=== PATIENT | female | born 1945 | race Caucasian/White ===

== ENCOUNTER 2020-02-19 16:17 | Outpatient (REF) | payer MEDICARE, SELFPAY ==
[2020-02-19 18:56] LABS: T4 Thyroxine 7.2 ug/dL (4.5-12.0)
[2020-02-19 19:00] LABS: Thyroid Stimulating Hormone 2.17 mIU/mL (0.32-4.0)
== END 2020-02-19 16:18 | disposition home or self-care (01) ==
LOC: HO.LAB 16:17
PROVIDERS: PCP Internal Medicine; Visit Provider Internal Medicine Gastroenterology
DX: R63.4 Abnormal weight loss (principal)
CPT/HCPCS: 84436; 84443

== ENCOUNTER 2020-08-19 11:48 | Emergency (ER) | payer MEDICARE, SELFPAY ==
--- NOTE | ~2020-08-19 | CT_ITS ---
EXAMINATION: CT CHEST, ABDOMEN AND PELVIS WITH CONTRAST CLINICAL INFORMATION: Right lower quadrant pain and weight loss COMPARISON: No pertinent prior studies are available for comparison. TECHNIQUE: Multidetector volumetric imaging was performed from the thoracic inlet through the pubic symphysis following administration of 85 mL of Omnipaque 350 intravenous contrast. Sagittal and coronal reformatted images were obtained on the technologist workstation. DLP: 172.99 mGy-cm. FINDINGS: CHEST: Lungs: There is diffuse centrilobular emphysema seen bilaterally with hyperinflation. There is bilateral apical pleural-parenchymal scarring. Central airways are patent. There is some bronchial wall thickening present. There is a region of focal bronchiectasis within the right upper lobe posterior medial aspect. There are some sub-4 mm densities present. There are some intrafissural lymph nodes present. There are a few scattered calcified granulomas present. There is a 5 mm noncalcified subpleural density seen in a region of scarring involving the right major fissure. There is also a 2 mm in noncalcified density adjacent to this area. Mediastinum: Heart normal size. No pericardial effusion. Coronary artery calcification is seen. There is a 1 cm right hilar lymph node. No thoracic aortic aneurysm or dissection is seen. Aortic arch calcified plaque is present with question hemodynamically significant narrowing at the origin of the left subclavian artery. Pericardium/Pleura: There is no significant pleural effusion. There is a small amount of pericardial fluid present. Chest Wall/Axilla: Unremarkable. ABDOMEN/PELVIS: Liver, Gallbladder, Biliary Tree: There are a few small sub-5 mm low-density lesions seen within the liver likely representing small cysts. No suspicious focal mass or intrahepatic bile duct dilatation is seen. The gallbladder is unremarkable with no evidence of radiopaque gallstones, gallbladder wall thickening, or pericholecystic inflammatory changes. Pancreas: Unremarkable. Spleen: Unremarkable. Adrenal Glands: Unremarkable. Kidneys and Ureters: The kidneys are normal in size, shape, and attenuation. No hydronephrosis or hydroureter or calculi seen. No perinephric stranding. There are bilateral renal cysts present right greater than left. Bladder: Distended and unremarkable. Gastrointestinal Tract: No dilated loops of large or small bowel are evident. No free air or free fluid is seen. There is sigmoid diverticular disease without evidence of acute diverticulitis. There appears to be previous surgery with appendix not being identified. Abdominal Wall: No hernia is demonstrated. Lymph Nodes: No lymphadenopathy appreciated. Vascular: There is a large amount of calcified plaque seen in the aortoiliac system. The visceral vessels are patent with calcified plaque at their ostia. Portal vein is patent. No abdominal aortic aneurysm. Pelvic Viscera: No suspicious pelvic mass identified. Osseous Structures: There is osteopenia visualized bones. No suspicious destructive bony lesion identified. There is scoliosis of the thoracic spine convex left. There is multilevel degenerative disc disease seen with loss of disc spaces L2-S1. CT/CT abdomen pelvis w con IMPRESSION: Diffuse centrilobular emphysema. 1 cm right hilar lymph node. 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
--- NOTE | ~2020-08-19 | CT_ITS ---
EXAMINATION: CT HEAD WITHOUT CONTRAST CLINICAL INFORMATION: Dizziness COMPARISON: None TECHNIQUE: Contiguous axial imaging was performed from the skull base to vertex without intravenous administration of contrast. This CT examination was performed using dose optimization techniques as appropriate, variously including the following: *Automated exposure control *Adjustment of mA and/or kV according to patient size (this includes techniques or standardized protocols for targeted exams where dose is matched to indication/reason for exam; i.e. extremities or head) *Use of iterative reconstruction technique DLP: 596 mGy-cm FINDINGS: There is no evidence of acute intracranial hemorrhage or territorial infarction. No abnormal mass effect or midline shift is seen. Sherman to white matter differentiation is well preserved. No extra-axial fluid collections are identified. The ventricles are normal in size. There is no abnormal attenuation within the brain parenchyma. The osseous structures and soft tissues are normal. The mastoid air cells and visualized portions of the paranasal sinuses are well aerated. CT/CT head/brain wo con IMPRESSION: No acute intracranial process seen
--- NOTE | 2020-08-19 12:02 | ECG_ITS ---
Test Reason : ABDOMINAL PAIN Blood Pressure : / mmHG Vent. Rate : 092 BPM Atrial Rate : 092 BPM P-R Int : 118 ms QRS Dur : 066 ms QT Int : 356 ms P-R-T Axes : 084 071 078 degrees QTc Int : 440 ms Normal sinus rhythm Normal ECG No previous ECGs available Referred By: Karolina Luis Electronically Signed By:ARIAS JIMENEZ
[2020-08-19 12:13] VITALS: BP 160/71; PULSE 90; RESP 18; TEMP 36.9; O2SAT 96; BMI 17.6
[2020-08-19 12:37] LABS: MANUAL DIFF FLAG NO
[2020-08-19 12:43] LABS: Basophils Percent Auto 0.5 % (0-2); Eosinophils Percent Auto 0.1 % (0-4); Hemoglobin 14.7 g/dl (12.0-16.0); Imm Gran Abs Auto 0.01 X10*3/uL (0.00-0.03); Imm Gran Pct Auto 0.1 % (0.0-0.4); Lymphocytes Absolute Auto 0.9 X10*3/uL (1.2-4.9); Lymphocytes Percent Auto 12.1 % (20-40); Mean Corpuscular HGB Conc 33.4 g/dl (31.0-35.0); Mean Corpuscular Hemoglobin 29.5 pg (27.0-33.0); Mean Corpuscular Volume 88.4 fL (80-98); Monocytes Absolute Auto 0.4 X10*3/uL (0.1-1.2); Monocytes Percent Auto 5.4 % (2-11); Neutrophils Absolute Auto 6.3 X10*3/uL (2.0-8.3); Neutrophils Percent Auto 81.8 % (45-73); Platelet Count 259 X10*3/uL (160-400); Red Blood Count 4.98 X10*6/uL (4.20-5.50); Red Cell Distribution Width 12.6 % (11.0-16.0); White Blood Count 7.7 X10*3/uL (4.8-10.8)
[2020-08-19 12:45] LABS: Prothrombin Time 11.3 SEC (10.8-13.0)
--- NOTE | 2020-08-19 12:45 | ED.ABDPAIN ---
HPI - Abdominal Pain General Chief Complaint: Abdominal Pain Stated Complaint: abd pain, nausea Time Seen by Provider: 08/19/20 11:52 Source: patient and family (Daughter at bedside) Mode of arrival: EMS Limitations: no limitations History of Present Illness HPI narrative: 74-year-old female with a past medical history of COPD, hyperlipidemia, anxiety disorder, IBS and diverticulosis being followed by [employer] operator Dr. Senior presenting to the ED with complaints of intermittent right upper quadrant/right lower quadrant radiating to her suprapubic abdominal area since Nov 2019. With associated nausea and dark brown stools. She reports in November 2019 she was seen at [facility] and had a CT scan of her abdomen and pelvis along with an ultrasound which per patient was negative for any acute processes. She reports she had a colonoscopy approximately 2 years ago. She reports over the past few days she has had increased generalized weakness. She reports she has also been having a humming sensation in her head and in her ears. Denies any dizziness, headaches, changes in vision, neck pain/stiffness, sore throat, cough, dyspnea on exertion, orthopnea, chest pain, shortness of breath, vomiting, vomiting any blood, radiation of the abdominal to the back, hematuria, dysuria, black or bloody stools or any other symptoms complaints or concerns at this time. MD elicited complaint: abdominal pain Related Data Home Medications Medication Instructions Recorded Confirmed albuterol sulfate 1 vial INHALATION Q6H PRN 08/19/20 08/19/20 atorvastatin 1 tab PO DAILY 08/19/20 08/19/20 budesonide-formoterol [Symbicort] 2 puff INHALATION BID 08/19/20 08/19/20 dicyclomine 1 cap PO DAILY 08/19/20 08/19/20 duloxetine 1 cap PO DAILY 08/19/20 08/19/20 omeprazole 1 cap PO DAILY 08/19/20 08/19/20 prednisone 1 tab PO DAILY 08/19/20 08/19/20 psyllium [Metamucil] 1 packet PO DAILY 08/19/20 08/19/20 Allergies Allergy/AdvReac Type Severity Reaction Status Date / Time No Known Allergies Allergy Unverified 01/01/20 15:23 Review of Systems Review of Systems Constitutional : No Weight loss, No Fever, No Chills, No Night Sweats, No Fatigue, NoMalaise ENT/Mouth: No ear pain, No sore throat, No Difficulty swallowing Cardiovascular : No Chest Pain, No SOB, No Dyspnea on Exertion, No Orthopnea, NoEdema, No Palpitations Respiratory : No Cough, No Sputum, No Wheezing, No Dyspnea Gastrointestinal : Positive nausea and abdominal pain, No Vomiting, No Diarrhea, No blood streaked emesis, No coffee-ground emesis, No gross hematemesis, No blood streak stool, No gross hematochezia, No Melena Genitourinary : No irregular bleeding, No Dysuria, No Urinary Frequency, No Hematuria,No Urinary Incontinence, No Urgency, No Flank Pain Musculoskeletal : No joint pain, No Myalgias, No Joint Swelling Skin : No Skin Lesions, No rash Neuro : No Weakness, No Numbness, No Paresthesias, No Loss of Consciousness, NoDizziness, No Headache Psych : No Social Issues, Heme/Lymph: No Bruising, No Bleeding,No Lymphadenopathy Endocrine : No Polyuria, No Polydipsia, No Temperature Intolerance Yes all other systems are reviewed and are negative Physical Exam Vital Signs: Vital Signs: Last Vital Signs Temp 98.5 F 08/19/20 12:13 Pulse 90 08/19/20 12:13 Resp 18 08/19/20 12:13 BP 160/71 H 08/19/20 12:13 Pulse Ox 96 08/19/20 12:13 Body Mass Index 17.6 vital signs have been reviewed as normal and appeared to be correct. Blood pressure hypertensive at 160/71. Heart rate normal. Respiration rate normal. Temperature normal. Oxygen saturation normal. Appearance: Alert. Oriented X3. No acute distress. Head: Normal external exam. Normocephalic. Atraumatic. Able to rotate head bilaterally. Eyes: PERRLA. EOMI. No nystagmus noted. Conjunctiva and sclera normal. Eyelids normal. Corneal reflex normal. ENT: EAC normal. TM's Normal. Hearing normal. Pharynx normal. Uvula midline. tongue midline. Moist mucous membranes. No trismus noted. No drooling noted. No muffled voice noted. No nystagmus noted. Neck: Normal inspection. Neck supple. FROM. No adenopathy. Trachea midline. Thyroid Normal. No meningeal signs. No neck mass noted. CVS: Normal heart rate and rhythm. Heart sound normal. No murmurs noted. Pulses normal throughout. Respiratory: No respiratory distress. Painless inspiration. Breath sounds normal. No wheezes/rales/rhonchi noted. Chest nontender. No accessory muscle usage noted or decreased air movement noted. Abdomen: Soft and moderate tenderness to palpation to right upper quadrant/right lower quadrant and left lower quadrant/suprapubic area with guarding. Nondistended. No rigidity. Bowel sounds normal in all 4 quadrants. No distention noted. No organomegaly noted. No visible injury noted. No rebound tenderness. Negative Rovsing sign. Negative obturator's sign. Negative psoas sign. Negative Cotton sign. Back: No CVA tenderness. Full range of motion noted. Skin: Skin warm and dry. Normal skin color. Normal skin turgor. No rashes/lesions/lacerations noted. Extremities: No lower extremity edema. Extremities exhibit normal range of motion. Extremities nontender. Able to shrug shoulders bilaterally and keep up against resistance. Neuro: Oriented X 3. No motor deficit. No sensory deficit. Reflexes normal. Moving all extremities. No focal motor deficits. Cranial nerves II-XI intact bilaterally. Facial strength normal. Normal cognition. Speech normal. Gait normal. Strength 5/5 throughout. No pronator drift. No tremor noted. No fasciculations noted. No rigidity noted. Muscle tone normal throughout. No asterixis noted. [id number] test normal. Heel to sherman test normal. Tandem gait normal. Does not sway with eyes open. Romberg test negative. Rapid alternating movement upper extremity normal. Rapid alternating movement lower extremity normal. Hand drop from overhead Misses face. NIHSS score 0. Course Course Course Narrative: 16pm - labs obtained and all within normal limits. COVID swab negative. CT scan of brain within normal limits no acute processes are noted. CT scan of chest revealed emphysema and a 5 mm noncalcified subpleural density seen in the region of the scarring involving the right major fissure and a 2 mm noncalcified density adjacent to this area. Patient also has There is a 1 cm right hilar lymph node. Otherwise no other acute processes noted. I gave the patient and her family member a copy of all her results including blood work and the imaging and instructed to follow-up with Dr. Senior in her PCP and to return if any new or worsening symptoms. Patient and family member at bedside understand agree with this plan. 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 Senior presenting to the ED with complaints of intermittent right upper quadrant/right lower quadrant/suprapubic abdominal pain with associated nausea over the past few months worse this week with associated generalized weakness and dark brown stools. Reports she has also heard a humming sensation her head/ears. Imaging at [facility] in November 2019 negative per patient. Colonoscopy 2 years ago negative. - on exam patient is alert oriented x3. Not in any acute distress. Vital signs are stable patient mildly hypertensive otherwise all other vitals are within normal limits. No focal neuro deficits are noted. NIHSS score 0. Lungs clear to auscultation. CV RRR. Abdomen is soft although patient has moderate tenderness almost diffusely mainly in the right upper/right lower/suprapubic and left lower quadrant with guarding. No CVA tenderness is noted. - Plan: Labs, CXR, EKG, blood cultures, lactic acid, CT scan of brain, CT of chest and CT scan of abd/pelvis without IV contrast. Provide 4 mg of Zofran and 650 mg of p.o. liquid Tylenol as patient is refusing any additional pain medications and re-evaluate. Medical Records Attestation: I reviewed the patient's medical records. Lab Data Attestation: I reviewed the patient's lab results. Result diagrams: 08/19/20 12:30 08/19/20 12:30 Labs: Lab Results 08/19/20 08/19/20 08/19/20 Range/Units 12:30 12:30 12:30 WBC 7.7 (4.8-10.8) X10*3/uL RBC 4.98 (4.20-5.50) X10*6/uL Hgb 14.7 (12.0-16.0) g/dl Hct 44.0 (37-47) % MCV 88.4 (80-98) fL MCH 29.5 (27.0-33.0) pg MCHC 33.4 (31.0-35.0) g/dl RDW 12.6 (11.0-16.0) % Plt Count 259 (160-400) X10*3/uL MPV 9.0 L (9.4-12.3) fL Immature Gran % (Auto) 0.1 (0.0-0.4) % Neut % (Auto) 81.8 H (45-73) % Lymph % (Auto) 12.1 L (20-40) % [place] % (Auto) 5.4 (2-11) % Eos % (Auto) 0.1 (0-4) % Baso % (Auto) 0.5 (0-2) % Lymph # (Auto) 0.9 L (1.2-4.9) X10*3/uL [place] # (Auto) 0.4 (0.1-1.2) X10*3/uL Eos # (Auto) 0.0 (0.0-0.4) X10*3/uL Baso # (Auto) 0.0 (0.0-0.2) X10*3/uL Abs Immat Gran (auto) 0.01 (0.00-0.03) X10*3/uL Absolute Neuts (auto) 6.3 (2.0-8.3) X10*3/uL Absolute Nucleated RBC 0.000 (0.0-0.012) X10*3/uL Nucleated RBC % (auto) 0.0 (0.0-0.2) /100WBC PT (10.8-13.0) SEC INR (0.9-1.1) APTT (24.1-38.0) SEC Sodium 135 (135-145) mmol/L Potassium 4.7 (3.3-5.1) mmol/L Chloride 97 (96-108) mmol/L Carbon Dioxide 27 (22-29) mmol/L Anion Gap 16 (12-20) BUN 11 (9-16) mg/dL Creatinine 0.76 (0.5-1.4) mg/dL Estim Creat Clear Calc 46.4 Estimated GFR > 60 Random Glucose 108 (60-115) mg/dL Lactic Acid (0.5-2.0) mmol/L Calcium 9.9 (8.4-10.2) mg/dL Magnesium 1.9 (1.6-2.6) mg/dL Total Bilirubin 0.7 (0.0-1.0) mg/dL Direct Bilirubin 0.2 (0.0-0.5) mg/dL AST 20 (5-31) U/L ALT 13 (0-31) U/L Alkaline Phosphatase 65 (39-117) U/L Troponin I High Sens (<3.5-17.0) ng/L Total Protein 6.8 (6.5-8.0) g/dL Albumin 4.3 (3.5-5.0) g/dL Lipase 11 (8-78) U/L COVID-19 ([facility]) Negative (Negative) COVID-19 Clin Com See Note 08/19/20 08/19/20 08/19/20 Range/Units 12:30 12:30 12:30 WBC (4.8-10.8) X10*3/uL RBC (4.20-5.50) X10*6/uL Hgb (12.0-16.0) g/dl Hct (37-47) % MCV (80-98) fL MCH (27.0-33.0) pg MCHC (31.0-35.0) g/dl RDW (11.0-16.0) % Plt Count (160-400) X10*3/uL MPV (9.4-12.3) fL Immature Gran % (Auto) (0.0-0.4) % Neut % (Auto) (45-73) % Lymph % (Auto) (20-40) % [place] % (Auto) (2-11) % Eos % (Auto) (0-4) % Baso % (Auto) (0-2) % Lymph # (Auto) (1.2-4.9) X10*3/uL [place] # (Auto) (0.1-1.2) X10*3/uL Eos # (Auto) (0.0-0.4) X10*3/uL Baso # (Auto) (0.0-0.2) X10*3/uL Abs Immat Gran (auto) (0.00-0.03) X10*3/uL Absolute Neuts (auto) (2.0-8.3) X10*3/uL Absolute Nucleated RBC (0.0-0.012) X10*3/uL Nucleated RBC % (auto) (0.0-0.2) /100WBC PT 11.3 (10.8-13.0) SEC INR 1.0 (0.9-1.1) APTT 29.4 (24.1-38.0) SEC Sodium (135-145) mmol/L Potassium (3.3-5.1) mmol/L Chloride (96-108) mmol/L Carbon Dioxide (22-29) mmol/L Anion Gap (12-20) BUN (9-16) mg/dL Creatinine (0.5-1.4) mg/dL Estim Creat Clear Calc Estimated GFR Random Glucose (60-115) mg/dL Lactic Acid 1.6 (0.5-2.0) mmol/L Calcium (8.4-10.2) mg/dL Magnesium Cancelled (1.6-2.6) mg/dL Total Bilirubin Cancelled (0.0-1.0) mg/dL Direct Bilirubin Cancelled (0.0-0.5) mg/dL AST Cancelled (5-31) U/L ALT Cancelled (0-31) U/L Alkaline Phosphatase Cancelled (39-117) U/L Troponin I High Sens (<3.5-17.0) ng/L Total Protein Cancelled (6.5-8.0) g/dL Albumin Cancelled (3.5-5.0) g/dL Lipase Cancelled (8-78) U/L COVID-19 ([facility]) (Negative) COVID-19 Clin Com 08/19/20 Range/Units 12:30 WBC (4.8-10.8) X10*3/uL RBC (4.20-5.50) X10*6/uL Hgb (12.0-16.0) g/dl Hct (37-47) % MCV (80-98) fL MCH (27.0-33.0) pg MCHC (31.0-35.0) g/dl RDW (11.0-16.0) % Plt Count (160-400) X10*3/uL MPV (9.4-12.3) fL Immature Gran % (Auto) (0.0-0.4) % Neut % (Auto) (45-73) % Lymph % (Auto) (20-40) % [place] % (Auto) (2-11) % Eos % (Auto) (0-4) % Baso % (Auto) (0-2) % Lymph # (Auto) (1.2-4.9) X10*3/uL [place] # (Auto) (0.1-1.2) X10*3/uL Eos # (Auto) (0.0-0.4) X10*3/uL Baso # (Auto) (0.0-0.2) X10*3/uL Abs Immat Gran (auto) (0.00-0.03) X10*3/uL Absolute Neuts (auto) (2.0-8.3) X10*3/uL Absolute Nucleated RBC (0.0-0.012) X10*3/uL Nucleated RBC % (auto) (0.0-0.2) /100WBC PT (10.8-13.0) SEC INR (0.9-1.1) APTT (24.1-38.0) SEC Sodium (135-145) mmol/L Potassium (3.3-5.1) mmol/L Chloride (96-108) mmol/L Carbon Dioxide (22-29) mmol/L Anion Gap (12-20) BUN (9-16) mg/dL Creatinine (0.5-1.4) mg/dL Estim Creat Clear Calc Estimated GFR Random Glucose (60-115) mg/dL Lactic Acid (0.5-2.0) mmol/L Calcium (8.4-10.2) mg/dL Magnesium (1.6-2.6) mg/dL Total Bilirubin (0.0-1.0) mg/dL Direct Bilirubin (0.0-0.5) mg/dL AST (5-31) U/L ALT (0-31) U/L Alkaline Phosphatase (39-117) U/L Troponin I High Sens 5.5 (<3.5-17.0) ng/L Total Protein (6.5-8.0) g/dL Albumin (3.5-5.0) g/dL Lipase (8-78) U/L COVID-19 ([facility]) (Negative) COVID-19 Clin Com Imaging Data CT scan of brain/chest and abdomen and pelvis: Attestation: I personally reviewed and interpreted this imaging study as follows: Radiologist's impression: FINDINGS: CHEST: Lungs: There is diffuse centrilobular emphysema seen bilaterally with hyperinflation. There is bilateral apical pleural-parenchymal scarring. Central airways are patent. There is some bronchial wall thickening present. There is a region of focal bronchiectasis within the right upper lobe posterior medial aspect. There are some sub-4 mm densities present. There are some intrafissural lymph nodes present. There are a few scattered calcified granulomas present. There is a 5 mm noncalcified subpleural density seen in a region of scarring involving the right major fissure. There is also a 2 mm in noncalcified density adjacent to this area. Mediastinum: Heart normal size. No pericardial effusion. Coronary artery calcification is seen. There is a 1 cm right hilar lymph node. No thoracic aortic aneurysm or dissection is seen. Aortic arch calcified plaque is present with question hemodynamically significant narrowing at the origin of the left subclavian artery. Pericardium/Pleura: There is no significant pleural effusion. There is a small amount of pericardial fluid present. Chest Wall/Axilla: Unremarkable. ABDOMEN/PELVIS: Liver, Gallbladder, Biliary Tree: There are a few small sub-5 mm low-density lesions seen within the liver likely representing small cysts. No suspicious focal mass or intrahepatic bile duct dilatation is seen. The gallbladder is unremarkable with no evidence of radiopaque gallstones, gallbladder wall thickening, or pericholecystic inflammatory changes. Pancreas: Unremarkable. Spleen: Unremarkable. Adrenal Glands: Unremarkable. Kidneys and Ureters: The kidneys are normal in size, shape, and attenuation. No hydronephrosis or hydroureter or calculi seen. No perinephric stranding. There are bilateral renal cysts present right greater than left. Bladder: Distended and unremarkable. Gastrointestinal Tract: No dilated loops of large or small bowel are evident. No free air or free fluid is seen. There is sigmoid diverticular disease without evidence of acute diverticulitis. There appears to be previous surgery with appendix not being identified. Abdominal Wall: No hernia is demonstrated. Lymph Nodes: No lymphadenopathy appreciated. Vascular: There is a large amount of calcified plaque seen in the aortoiliac system. The visceral vessels are patent with calcified plaque at their ostia. Portal vein is patent. No abdominal aortic aneurysm. Pelvic Viscera: No suspicious pelvic mass identified. Osseous Structures: There is osteopenia visualized bones. No suspicious destructive bony lesion identified. There is scoliosis of the thoracic spine convex left. There is multilevel degenerative disc disease seen with loss of disc spaces L2-S1. CT/CT chest w con IMPRESSION: Diffuse centrilobular emphysema. 1 cm right hilar lymph node. 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 FINDINGS: There is no evidence of acute intracranial hemorrhage or territorial infarction. No abnormal mass effect or midline shift is seen. Sherman to white matter differentiation is well preserved. No extra-axial fluid collections are identified. The ventricles are normal in size. There is no abnormal attenuation within the brain parenchyma. The osseous structures and soft tissues are normal. The mastoid air cells and visualized portions of the paranasal sinuses are well aerated. CT/CT head/brain wo con IMPRESSION: No acute intracranial process seen ECG Data Attestation: I personally reviewed and interpreted this ECG as follows: ECG interpretation date: 08/19/20 ECG interpretation time: 12:42 Interpretation: Normal sinus rhythm and a triplet of 92 with a normal IA interval normal QRS duration normal QT/QTC interval. No acute ischemic changes are noted. No prior EKGs in our system at this time to compare to. Critical Care Time Critical Care Time Critical Care Time: Yes Total Critical Care Time: 60 Attestation: I personally attest to this time spent taking care of the patient Discharge Plan Discharge Clinical Impression: Abdominal pain Patient Disposition: Home, Self-Care Instructions: Abdominal Pain (ED) Prescriptions: No Action albuterol sulfate 2.5 mg /3 mL (0.083 %) solution for nebulization 1 vial inhalation Q6H PRN (Reason: wheezing) RF: 0 atorvastatin 10 mg tablet 1 tab PO DAILY RF: 0 prednisone 5 mg tablet 1 tab PO DAILY RF: 0 omeprazole 20 mg capsule,delayed release(DR/EC) 1 cap PO DAILY RF: 0 dicyclomine 10 mg capsule 1 cap PO DAILY RF: 0 duloxetine 30 mg capsule,delayed release(DR/EC) 1 cap PO DAILY RF: 0 budesonide-formoterol [Symbicort] 160-4.5 mcg/actuation HFA aerosol inhaler 2 puff inhalation BID RF: 0 Metamucil Packet 1 packet PO DAILY RF: 0 Referrals: Ag Senior [Physician] - 2 days Print Language: [place]i [facility] Past Medical History Attestation statement: The following information was validated with the patient. Medical History Anxiety COPD (chronic obstructive pulmonary disease) Diverticulosis High cholesterol IBS (irritable bowel syndrome) Surgical History History of back surgery History of partial colectomy Social History Social History Advance Directives: Yes Advance Directives Information Provided: No Advance Directives on File: No
[2020-08-19 12:48] LABS: Partial Thromboplastin Time 29.4 SEC (24.1-38.0)
[2020-08-19 12:55] LABS: COVID-19 Test Negative (Negative)
[2020-08-19 13:00] LABS: Lactic Acid 1.6 mmol/L (0.5-2.0)
[2020-08-19 13:08] LABS: Alanine Aminotransferase 13 U/L (0-31); Albumin Level 4.3 g/dL (3.5-5.0); Alkaline Phosphatase 65 U/L (39-117); Anion Gap 16 (12-20); Aspartate Amino Transferase 20 U/L (5-31); Bilirubin Direct 0.2 mg/dL (0.0-0.5); Bilirubin Total 0.7 mg/dL (0.0-1.0); Blood Urea Nitrogen 11 mg/dL (9-16); Calcium 9.9 mg/dL (8.4-10.2); Carbon Dioxide 27 mmol/L (22-29); Chloride 97 mmol/L (96-108); Creatinine Clr Calc Pharmacy 46.4; Estimated Glomerular Filt Rate > 60; Glucose Random 108 mg/dL (60-115); Lipase 11 U/L (8-78); Magnesium 1.9 mg/dL (1.6-2.6); Potassium 4.7 mmol/L (3.3-5.1); Sodium 135 mmol/L (135-145); Total Protein 6.8 g/dL (6.5-8.0)
[2020-08-19 13:11] LABS: Troponin-I High Sensitivity 5.5 ng/L (<3.5-17.0)
[2020-08-19] MEDS: 0.9 % Sodium Chloride 1,000 ML 999 ML IVCONT (14:03)
[2020-08-19] MEDS: ondansetron HCL 4 MG/2 ML VIAL IVPUSH (14:06)
[2020-08-19] MEDS: iohexoL 350 MG/ML 100 ML INFUS..BTL IV (14:33)
== END 2020-08-19 16:45 | disposition home or self-care (01) ==
PROVIDERS: Emergency Provider Emergency Medicine; PCP Internal Medicine
DX: R10.31 Right lower quadrant pain (principal); R10.11 Right upper quadrant pain; Z20.822 Contact with and (suspected) exposure to COVID-19; Z79.899 Other long term (current) drug therapy
CPT/HCPCS: 36415; 70450; 71260; 74177; 80048; 80076; 83605; 83690; 83735; 84484; 85025; 85610; 85730; 87040; 87635; 93005; 96361; 96365; 96375; 99283; 99284; J2405; Q9967

== ENCOUNTER 2020-08-20 10:07 | Outpatient (REF) | payer MEDICARE, SELFPAY ==
[2020-08-20 11:42] LABS: Leukocytes Stool Qualitative NEGATIVE (NEGATIVE)
[2020-08-20 13:17] LABS: CDIFF Ag Negative (Negative); CDIFF Internal ctrl Dots and bkg OK (V); CDiff Toxin Negative (Negative)
== END 2020-08-20 10:08 | disposition home or self-care (01) ==
LOC: HO.HMGCLNP 10:07
PROVIDERS: Visit Provider Internal Medicine Gastroenterology
DX: R10.84 Generalized abdominal pain (principal); R19.7 Diarrhea, unspecified; R63.4 Abnormal weight loss
CPT/HCPCS: 87045; 87046; 87177; 87209; 87324; 87329; 87449; 89055

== ENCOUNTER 2024-01-30 18:56 | Inpatient (IN) | payer MEDICARE, SELFPAY ==
--- NOTE | ~2024-01-30 | XR_ITS ---
EXAMINATION: XR CHEST CLINICAL INFORMATION: Shortness of breath COMPARISON: CT PE study 01/30/2024 and chest radiograph 01/30/2024 TECHNIQUE: Frontal view of the chest was obtained. FINDINGS: The lungs are hyperinflated compatible with COPD. A chain suture line and surgical clips are again noted at the right apex. Pleural-parenchymal scarring is seen. Heart size is normal and there is no consolidations or lung masses. XR/XR chest 1V IMPRESSION: COPD. No acute intrathoracic disease. Electronically signed by: Braulio Paulson MD 01/31/2024 11:16 AM EDT
--- NOTE | ~2024-01-30 | XR_ITS ---
EXAMINATION: XR CHEST CLINICAL INFORMATION: Shortness of breath. COMPARISON: CT chest dated 08/19/2020. TECHNIQUE: Frontal and lateral views of the chest were obtained. FINDINGS: The heart, great vessels, pulmonary vasculature and mediastinum are normal. There is hyperinflation, diaphragmatic flattening and increase in retrosternal clear space. Postoperative changes are seen in the right apex. A faint mid left lung infiltrate is questioned. There is no pleural effusion. There is biapical pleural scarring, left greater than right. No acute osseous abnormality seen. There is multi-level thoracic spondylosis. XR/XR chest 2V IMPRESSION: 1. A faint early mid left lung infiltrate is questioned. Recommend short-term follow-up chest radiographs to ensure clearance and exclude the possibility of underlying obstructive process. 2. Findings are consistent with COPD. Electronically signed by: Frederick Mireles MD 01/30/2024 10:39 PM EDT
--- NOTE | ~2024-01-30 | CT_ITS ---
EXAMINATION: CT ANGIOGRAM OF THE CHEST WITH AND WITHOUT CONTRAST (CT PULMONARY ANGIOGRAM FOR PE) CLINICAL INFORMATION: hypoxia COMPARISON: CT chest 08/19/2020 TECHNIQUE: Prior to contrast administration, noncontrast localization images were obtained. Subsequently, multidetector volumetric imaging was performed from the thoracic inlet to the pubic symphysis through the chest, abdomen, and pelvis following the administration of 65 mL Omnipaque 350 intravenous contrast. No contrast reaction reported Sagittal, coronal, and MIP oblique sagittal (through the chest only) reformatted images were obtained on the CT workstation, uploaded to PACS, and reviewed. This CT examination was performed using dose optimization techniques as appropriate, variously including the following: *Automated exposure control *Adjustment of mA and/or kV according to patient size (this includes techniques or standardized protocols for targeted exams where dose is matched to indication/reason for exam; i.e. extremities or head) *Use of iterative reconstruction technique Total exam dose-length product: 180 mGy-cm FINDINGS: QUALITY OF STUDY/CONTRAST BOLUS: Satisfactory. PULMONARY ARTERIES: No central or segmental pulmonary emboli. CORONARY ARTERY CALCIUM: Present THORACIC AORTA: No aneurysm or dissection. LUNG: There are significant changes of COPD with hyperinflation and bullous changes. Biapical pleural parenchymal scarring is present with some calcifications, left greater than right. A few calcified granulomas are seen. No suspicious lung mass or consolidation seen. The PLEURA: No pleural effusion or pneumothorax. MEDIASTINUM: Normal heart size. No pericardial effusion. No hilar or mediastinal lymphadenopathy. No evidence of septal bowing or right heart strain. CHEST WALL/AXILLA: No axillary or internal mammary lymphadenopathy. OSSEOUS STRUCTURES: No acute or suspicious osseous abnormality. VISUALIZED ABDOMEN: No significant findings in the upper abdomen. CT/CT angio chest PE protocol IMPRESSION: 1. No evidence of pulmonary emboli. 2. COPD. VTE: negative. Fleischner guidelines were followed. Electronically signed by: Braulio Paulson MD 01/31/2024 12:56 AM EDT
--- NOTE | 2024-01-30 18:59 | ECG_ITS ---
Test Reason : SOB Blood Pressure : / mmHG Vent. Rate : 093 BPM Atrial Rate : 093 BPM P-R Int : 128 ms QRS Dur : 066 ms QT Int : 358 ms P-R-T Axes : 080 034 073 degrees QTc Int : 445 ms Normal sinus rhythm Normal ECG When compared with ECG of 19-AUG-2020 12:42, No significant change was found Referred By: Denton Jensen Electronically Signed By:ARIAS JIMENEZ
[2024-01-30 19:05] VITALS: BP 128/90; BP 171/83; PULSE 87; PULSE 93; RESP 20; TEMP 36.5; O2SAT 98; BMI 21.4
--- NOTE | 2024-01-30 19:14 | ED.GENADULT ---
HPI - General Adult General Chief complaint: Dyspnea Stated complaint: sob x3 days Time Seen by Provider: 01/30/24 18:58 History of Present Illness ED Provider: Camila BRAR narrative: 78-year-old female with past medical history of COPD presenting for shortness of breath. Patient states that she developed a cold last Sunday and this past Sunday she began experiencing shortness of breath that is worse with activity. She denies chest pain, fevers, chills however she endorses productive cough with white-colored sputum Related Data Home Medications ?Medication ?Instructions ?Recorded ?Confirmed albuterol sulfate 2.5 mg/3 mL 1 vial inhalation Q6H PRN wheezing 08/19/20 08/19/20 (0.083 %) solution for nebulization atorvastatin 10 mg tablet 1 tab PO DAILY 08/19/20 08/19/20 budesonide-formoterol HFA 160 2 puff inhalation BID 08/19/20 08/19/20 mcg-4.5 mcg/actuation aerosol inhaler (Symbicort) dicyclomine 10 mg capsule 1 cap PO DAILY 08/19/20 08/19/20 duloxetine 30 mg capsule,delayed 1 cap PO DAILY 08/19/20 08/19/20 release omeprazole 20 mg capsule,delayed 1 cap PO DAILY 08/19/20 08/19/20 release prednisone 5 mg tablet 1 tab PO DAILY 08/19/20 08/19/20 psyllium 1 packet PO DAILY 08/19/20 08/19/20 Allergies Allergy/AdvReac Type Severity Reaction Status Date / Time No Known Allergies Allergy Verified 01/30/24 19:07 Review of Systems Review of Systems: Patient endorses cough, shortness of breath She denies chest pain, diaphoresis, fevers, chills, abdominal pain, nausea, vomiting, urinary symptoms Yes all other systems are reviewed and are negative [facility] Past Medical History Medical History Anxiety COPD (chronic obstructive pulmonary disease) Diverticulosis High cholesterol IBS (irritable bowel syndrome) Surgical History History of back surgery History of partial colectomy Social History Social History Smoked in Last 30 Days: No Use of substances other than those prescribed or required for medical reasons: No Advance Directives: No Advance Directives Information Provided: No Do you have a plan to hurt others: No Plan Physical Exam ED Vital Signs: Vital Signs - 24 hr 01/30/24 19:05 01/30/24 22:18 01/30/24 22:43 Temperature 97.7 F Pulse Rate 87 106 H Respiratory Rate 20 36 H Blood Pressure 171/83 H 140/85 H Pulse Oximetry 98 87 L 94 Oxygen Delivery Method Room Air Room Air BMI result Body Mass Index 21.4 Wheezing auscultated bilaterally with good aeration Normal S1-S2 regular rate rhythm Abdomen is soft nontender nondistended No lower extremity edema or calf tenderness appreciated Medications Administered Discontinued Medications Generic Name Dose Route Start Last Admin Trade Name Freq PRN Reason Stop Dose Admin Albuterol/Ipratropium 9 ml 01/30/24 19:13 01/30/24 19:47 Albuterol/Iprat 2.5/0.5mg 3 Ml Ampul.Neb INHALE 01/30/24 19:14 9 ml ONCE ONE Administration Ceftriaxone Sodium 1 gm 01/30/24 21:43 01/30/24 22:00 Ceftriaxone Sodium 1 Gm Vial IVPUSH 01/30/24 21:44 1 gm ONCE ONE Administration Doxycycline Monohydrate 100 mg 01/30/24 21:43 01/30/24 21:59 Doxycycline Monohydrate 100 Mg Capsule PO 01/30/24 21:44 100 mg ONCE ONE Administration Iohexol 65 ml 01/30/24 23:13 01/30/24 23:13 Iohexol 350 Mg/Ml 100 Ml Infus..Btl IV 01/30/24 23:14 65 ml ONCE ONE Administration Methylprednisolone Sodium Succinate 125 mg 01/30/24 19:13 01/30/24 19:21 Methylprednisolone Sod Succ 125 Mg/2 Ml Vial IVPUSH 01/30/24 19:14 125 mg ONCE ONE Administration Medical Decision Making Medical Decision Making MDM Narrative: This is an 78-year-old female presenting for shortness of breath. I am concerned for the following; COPD exacerbation, viral URI, COVID, flu, pneumonia - less likely ACS given HPI. At this time I am not concerned for PE given low Wells score - duonebs, mag and steroids ordered - labs and imaging studies ordered - labs notable for stable H&H and normal white count, electrolytes within normal limits, 1st troponin of 5.1, elevated lactate - abx ordered - patient desaturated to 87% and became tachypneic on bedside ambulation - I do not notice any filling defects on her CT scan and the radiology interpretation was negative for pulmonary embolism - patient admitted to medicine floor Differential Diagnosis COPD exacerbation, evaluated, COVID, flu, pneumonia Lab Data 01/30/24 19:17 01/30/24 19:58 Labs: Lab Results 01/30/24 01/30/24 01/30/24 Range/Units 19:17 19:22 19:58 WBC 8.4 (4.8-10.8) X10*3/uL RBC 5.02 (4.20-5.50) X10*6/uL Hgb 14.8 (12.0-16.0) g/dl Hct 45.2 (37.0-47.0) % MCV 90.0 (80.0-98.0) fL MCH 29.5 (27.0-33.0) pg MCHC 32.7 (31.0-35.0) g/dl RDW 13.7 (11.0-16.0) % Plt Count 291 (160-400) X10*3/uL MPV 9.1 L (9.4-12.3) fL Immature Gran % (Auto) 0.4 (0.0-0.4) % Neut % (Auto) 65.3 (45-73) % Lymph % (Auto) 22.6 (20-40) % [place] % (Auto) 9.8 (2-11) % Eos % (Auto) 1.3 (0-4) % Baso % (Auto) 0.6 (0-2) % Lymph # (Auto) 1.9 (1.2-4.9) X10*3/uL [place] # (Auto) 0.8 (0.1-1.2) X10*3/uL Eos # (Auto) 0.1 (0.0-0.4) X10*3/uL Baso # (Auto) 0.1 (0.0-0.2) X10*3/uL Abs Immat Gran (auto) 0.03 (0.00-0.03) X10*3/uL Absolute Neuts (auto) 5.5 (2.0-8.3) x10*3/uL Absolute Nucleated RBC 0.000 (0.0-0.012) X10*3/uL Nucleated RBC % (auto) 0.0 (0.0-0.2) /100WBC VBG pH 7.32 (7.32-7.43) VBG pCO2 52 mmHg VBG pO2 36 mmHg VBG HCO3 27 H (22-26) mmol/L VBG O2 Saturation 52.0 % VBG Base Excess 0.6 mmol/L Sodium 140 (135-145) mmol/L Potassium 4.2 (3.3-5.1) mmol/L Chloride 102 (96-108) mmol/L Carbon Dioxide 27 (22-29) mmol/L Anion Gap 15 (12-20) BUN 14 (9-16) mg/dL Creatinine 0.88 (0.5-1.4) mg/dL Estim Creat Clear Calc 43.9 Estimated GFR > 60 Random Glucose 95 (60-115) mg/dL Lactic Acid 2.5 H* (0.5-2.0) mmol/L Calcium 10.1 (8.4-10.2) mg/dL Magnesium 1.9 (1.6-2.6) mg/dL Total Bilirubin 0.5 (0.0-1.0) mg/dL AST 23 (5-31) U/L ALT 20 (0-31) U/L Alkaline Phosphatase 78 (39-117) U/L Troponin I High Sens 5.1 (<3.5-17.0) ng/L Total Protein 7.2 (6.5-8.0) g/dL Albumin 4.4 (3.5-5.0) g/dL Influenza Type A (PCR) NEGATIVE (Negative) Influenza Type B (PCR) NEGATIVE (Negative) RSV RNA Qual (PCR) NEGATIVE (Negative) SARS-CoV-2 RNA (RT-PCR) NEGATIVE (Negative) 01/30/24 Range/Units 21:33 WBC (4.8-10.8) X10*3/uL RBC (4.20-5.50) X10*6/uL Hgb (12.0-16.0) g/dl Hct (37.0-47.0) % MCV (80.0-98.0) fL MCH (27.0-33.0) pg MCHC (31.0-35.0) g/dl RDW (11.0-16.0) % Plt Count (160-400) X10*3/uL MPV (9.4-12.3) fL Immature Gran % (Auto) (0.0-0.4) % Neut % (Auto) (45-73) % Lymph % (Auto) (20-40) % [place] % (Auto) (2-11) % Eos % (Auto) (0-4) % Baso % (Auto) (0-2) % Lymph # (Auto) (1.2-4.9) X10*3/uL [place] # (Auto) (0.1-1.2) X10*3/uL Eos # (Auto) (0.0-0.4) X10*3/uL Baso # (Auto) (0.0-0.2) X10*3/uL Abs Immat Gran (auto) (0.00-0.03) X10*3/uL Absolute Neuts (auto) (2.0-8.3) x10*3/uL Absolute Nucleated RBC (0.0-0.012) X10*3/uL Nucleated RBC % (auto) (0.0-0.2) /100WBC VBG pH (7.32-7.43) VBG pCO2 mmHg VBG pO2 mmHg VBG HCO3 (22-26) mmol/L VBG O2 Saturation % VBG Base Excess mmol/L Sodium (135-145) mmol/L Potassium (3.3-5.1) mmol/L Chloride (96-108) mmol/L Carbon Dioxide (22-29) mmol/L Anion Gap (12-20) BUN (9-16) mg/dL Creatinine (0.5-1.4) mg/dL Estim Creat Clear Calc Estimated GFR Random Glucose (60-115) mg/dL Lactic Acid (0.5-2.0) mmol/L Calcium (8.4-10.2) mg/dL Magnesium (1.6-2.6) mg/dL Total Bilirubin (0.0-1.0) mg/dL AST (5-31) U/L ALT (0-31) U/L Alkaline Phosphatase (39-117) U/L Troponin I High Sens 6.1 (<3.5-17.0) ng/L Total Protein (6.5-8.0) g/dL Albumin (3.5-5.0) g/dL Influenza Type A (PCR) (Negative) Influenza Type B (PCR) (Negative) RSV RNA Qual (PCR) (Negative) SARS-CoV-2 RNA (RT-PCR) (Negative) Discharge Plan Discharge Clinical Impression: COPD (chronic obstructive pulmonary disease) Patient Disposition: Admitted As Inpatient Print Language: Tamazight
[2024-01-30] MEDS: methylPREDNISolone Sod Succ 125 MG/2 ML VIAL IVPUSH (19:21)
[2024-01-30 19:22] LABS: MANUAL DIFF FLAG NO
[2024-01-30 19:26] LABS: VBG Base Excess 0.6 mmol/L; VBG HCO3 27 mmol/L (22-26); VBG pCO2 52 mmHg; VBG pH 7.32 (7.32-7.43); VBG pO2 36 mmHg
[2024-01-30 19:30] LABS: Venous Blood Gas Refer to POC result
[2024-01-30 19:38] LABS: Basophils Absolute Auto 0.1 X10*3/uL (0.0-0.2); Basophils Percent Auto 0.6 % (0-2); Eosinophils Absolute Auto 0.1 X10*3/uL (0.0-0.4); Eosinophils Percent Auto 1.3 % (0-4); Hematocrit 45.2 % (37.0-47.0); Hemoglobin 14.8 g/dl (12.0-16.0); Imm Gran Abs Auto 0.03 X10*3/uL (0.00-0.03); Imm Gran Pct Auto 0.4 % (0.0-0.4); Lymphocytes Absolute Auto 1.9 X10*3/uL (1.2-4.9); Lymphocytes Percent Auto 22.6 % (20-40); Mean Corpuscular HGB Conc 32.7 g/dl (31.0-35.0); Mean Corpuscular Hemoglobin 29.5 pg (27.0-33.0); Mean Platelet Volume 9.1 fL (9.4-12.3); Monocytes Absolute Auto 0.8 X10*3/uL (0.1-1.2); Monocytes Percent Auto 9.8 % (2-11); Neutrophils Absolute Auto 5.5 x10*3/uL (2.0-8.3); Neutrophils Percent Auto 65.3 % (45-73); Platelet Count 291 X10*3/uL (160-400); Red Blood Count 5.02 X10*6/uL (4.20-5.50); Red Cell Distribution Width 13.7 % (11.0-16.0); White Blood Count 8.4 X10*3/uL (4.8-10.8)
[2024-01-30] MEDS: Albuterol/Iprat 2.5/0.5MG 3 ML AMPUL.NEB 9 ML INHALE (19:47)
[2024-01-30 19:51] LABS: Lactic Acid 2.5 mmol/L (0.5-2.0)
--- NOTE | 2024-01-30 19:52 | PC.NURSE ---
pt biba from urgent care, a&ox4, respirations even and unlabored. per pt, pt was ambulating at urgent care when o2 sat decreased to 88%, pt placed on 15L non rebreather, on ems arrival pt 100%, ems placed pt on 2L nasal cannula sating 98-100. on arrival to ed, pt removed from o2, 98% on room air. pt reporting x3 days of shortness of breath with congestion. pt denies chest pain at this time. 20G placed in right ac, labs obtained. pt normal sinus on tele 90-94bpm.
[2024-01-30 19:54] LABS: Troponin-I High Sensitivity 5.1 ng/L (<3.5-17.0)
[2024-01-30 20:13] LABS: Influenza A PCR NEGATIVE (Negative); Influenza B PCR NEGATIVE (Negative); Resp Syncy Virus RNA Qual PCR NEGATIVE (Negative); SARS COV2 PCR INHOUSE NEGATIVE (Negative)
[2024-01-30 20:18] LABS: Alanine Aminotransferase 20 U/L (0-31); Albumin Level 4.4 g/dL (3.5-5.0); Alkaline Phosphatase 78 U/L (39-117); Anion Gap 15 (12-20); Aspartate Amino Transferase 23 U/L (5-31); Bilirubin Total 0.5 mg/dL (0.0-1.0); Blood Urea Nitrogen 14 mg/dL (9-16); Calcium 10.1 mg/dL (8.4-10.2); Carbon Dioxide 27 mmol/L (22-29); Chloride 102 mmol/L (96-108); Creatinine Clr Calc Pharmacy 43.9; Estimated Glomerular Filt Rate > 60; Glucose Random 95 mg/dL (60-115); Magnesium 1.9 mg/dL (1.6-2.6); Potassium 4.2 mmol/L (3.3-5.1); Sodium 140 mmol/L (135-145); Total Protein 7.2 g/dL (6.5-8.0)
[2024-01-30 21:22] LABS: Reflex Lactate? Lactic Acid Added
--- NOTE | 2024-01-30 21:52 | PC.NURSE ---
per Cristi CARTAGENA, okay to given antibiotics without blood cultures at this time.
[2024-01-30] MEDS: Doxycycline Monohydrate 100 MG CAPSULE PO (21:59)
[2024-01-30] MEDS: cefTRIAXone sodium 1 GM VIAL IVPUSH (22:00)
[2024-01-30 22:02] LABS: Troponin-I High Sensitivity 6.1 ng/L (<3.5-17.0)
--- NOTE | 2024-01-30 22:02 | PC.NURSE ---
pt medicated per mar, tolerated well with water.
[2024-01-30 22:18] VITALS: O2SAT 87
[2024-01-30 22:43] VITALS: BP 140/85; PULSE 106; RESP 36; O2SAT 94
[2024-01-30] MEDS: iohexoL 350 MG/ML 100 ML INFUS..BTL 65 ML IV (23:13)
[2024-01-31] VITALS (11 sets, daily range): BP systolic 98–119; BP diastolic 63–74; PULSE 64–100; RESP 15–28; TEMP 36–36.7; O2SAT 85–99; BMI 20.8
--- NOTE | 2024-01-31 00:31 | PC.NURSE ---
pt ambulatory to bathroom with steady gait, reports shortness of breath but denies pain.
--- NOTE | 2024-01-31 01:45 | P.HPHOSP_ITS ---
History of Present Illness Date of Service: 01/31/24 Chief Complaint: Dyspnea This is 78-year-old female with pertinent history of COPD not on home oxygen, former tobacco use disorder, mixed hyperlipidemia, mood disorder, gastroesophageal reflux disease who presents to the emergency department for evaluation of dyspnea. Patient states her symptoms started 3 days prior to presentation. She has been having dyspnea which is worse with exertion. Also had associated whitish thick sputum production. Does endorse wheezing which is not resolved with home inhaler. No fever or chills. No chest pain or palpitations. Denies nausea, vomiting, abdominal pain, changes in urinary or bowel habits. In the emergency department, patient with wheezing despite multiple DuoNeb treatments. Also received IV steroids in the ER Review of Systems 2 Constitutional: Constitutional: Reports fatigue and Reports malaise Cardiovascular: Cardiovascular: Reports dyspnea on exertion Respiratory: Respiratory: Reports cough, Reports dyspnea on exertion and Reports wheezing Gastrointestinal: Gastrointestinal: Reports no additional gastrointestinal complaints Genitourinary: Genitourinary: Reports no additional female genitourinary complaints Endocrine: Endocrine: Reports fatigue Allergic/Immunologic: Allergic/Immunologic: Reports wheezing [facility] Medical History High cholesterol Anxiety Diverticulosis IBS (irritable bowel syndrome) COPD (chronic obstructive pulmonary disease) Pertinent family history: Not significant due to age Surgical History History of back surgery History of partial colectomy Social History Smoked in Last 30 Days: No Use of substances other than those prescribed or required for medical reasons: No Advance Directives: No Advance Directives Information Provided: No Do you have a plan to hurt others: No Plan Meds Allergies Allergy/AdvReac Type Severity Reaction Status Date / Time No Known Allergies Allergy Verified 01/30/24 19:07 Home Medications ?Medication ?Instructions ?Recorded ?Confirmed ?Last Taken ?Type albuterol sulfate 2.5 mg/3 mL 1 vial inhalation Q6H PRN wheezing 08/19/20 08/19/20 Unknown History (0.083 %) solution for nebulization atorvastatin 10 mg tablet 1 tab PO DAILY 08/19/20 08/19/20 Unknown History budesonide-formoterol HFA 160 2 puff inhalation BID 08/19/20 08/19/20 Unknown History mcg-4.5 mcg/actuation aerosol inhaler (Symbicort) dicyclomine 10 mg capsule 1 cap PO DAILY 08/19/20 08/19/20 Unknown History duloxetine 30 mg capsule,delayed 1 cap PO DAILY 08/19/20 08/19/20 Unknown History release omeprazole 20 mg capsule,delayed 1 cap PO DAILY 08/19/20 08/19/20 Unknown History release prednisone 5 mg tablet 1 tab PO DAILY 08/19/20 08/19/20 Unknown History psyllium 1 packet PO DAILY 08/19/20 08/19/20 Unknown History Physical Exam 2 Vital Signs and Narrative: Vital Signs: Last Vital Signs Temp 97.7 F 01/30/24 19:05 Pulse 106 H 01/30/24 22:43 Resp 36 H 01/30/24 22:43 BP 140/85 H 01/30/24 22:43 Pulse Ox 94 01/30/24 22:43 O2 Del Method Room Air 01/30/24 22:43 BMI result Body Mass Index 21.4 Elderly female lying in bed in no distress Neck supple, no JVD Regular rate and rhythm, S1-S2 heard Bilateral wheezing appreciated without crackles Abdomen soft nontender, no guarding, no rigidity Patient is awake, alert and oriented to self, place, time and person ; no focal motor deficit Psych: Normal mood No pedal edema Results Labs 01/30/24 19:17 01/30/24 19:58 Labs: Laboratory Results - last 24 hr 01/30/24 01/30/24 01/30/24 19:17 19:22 19:58 MCV 90.0 MCH 29.5 MCHC 32.7 RDW 13.7 Plt Count 291 MPV 9.1 L Immature Gran % (Auto) 0.4 Neut % (Auto) 65.3 Lymph % (Auto) 22.6 [place] % (Auto) 9.8 Eos % (Auto) 1.3 Baso % (Auto) 0.6 Lymph # (Auto) 1.9 [place] # (Auto) 0.8 Eos # (Auto) 0.1 Baso # (Auto) 0.1 Abs Immat Gran (auto) 0.03 Absolute Neuts (auto) 5.5 Absolute Nucleated RBC 0.000 Nucleated RBC % (auto) 0.0 VBG pH 7.32 VBG pCO2 52 VBG pO2 36 VBG HCO3 27 H VBG O2 Saturation 52.0 VBG Base Excess 0.6 Anion Gap 15 Estim Creat Clear Calc 43.9 Estimated GFR > 60 Random Glucose 95 Lactic Acid 2.5 H* Calcium 10.1 Magnesium 1.9 Total Bilirubin 0.5 AST 23 ALT 20 Alkaline Phosphatase 78 Troponin I High Sens 5.1 Total Protein 7.2 Albumin 4.4 Influenza Type A (PCR) NEGATIVE Influenza Type B (PCR) NEGATIVE RSV RNA Qual (PCR) NEGATIVE SARS-CoV-2 RNA (RT-PCR) NEGATIVE 01/30/24 21:33 MCV MCH MCHC RDW Plt Count MPV Immature Gran % (Auto) Neut % (Auto) Lymph % (Auto) [place] % (Auto) Eos % (Auto) Baso % (Auto) Lymph # (Auto) [place] # (Auto) Eos # (Auto) Baso # (Auto) Abs Immat Gran (auto) Absolute Neuts (auto) Absolute Nucleated RBC Nucleated RBC % (auto) VBG pH VBG pCO2 VBG pO2 VBG HCO3 VBG O2 Saturation VBG Base Excess Anion Gap Estim Creat Clear Calc Estimated GFR Random Glucose Lactic Acid Calcium Magnesium Total Bilirubin AST ALT Alkaline Phosphatase Troponin I High Sens 6.1 Total Protein Albumin Influenza Type A (PCR) Influenza Type B (PCR) RSV RNA Qual (PCR) SARS-CoV-2 RNA (RT-PCR) Imaging Radiologist's Impressions: Impressions Chest X-Ray 01/30/24 19:11 IMPRESSION: 1. A faint early mid left lung infiltrate is questioned. Recommend short-term follow-up chest radiographs to ensure clearance and exclude the possibility of underlying obstructive process. 2. Findings are consistent with COPD. Electronically signed by: Frederick Mireles MD 01/30/2024 10:39 PM EDT RP Chest CTA 01/30/24 22:50 IMPRESSION: 1. No evidence of pulmonary emboli. 2. COPD. VTE: negative. Fleischner guidelines were followed. Electronically signed by: Braulio Paulson MD 01/31/2024 12:56 AM EDT RP Assessment and Plan (1) COPD (chronic obstructive pulmonary disease): Status: Acute Plan This is 78-year-old female with pertinent history of COPD not on home oxygen, former tobacco use disorder, mixed hyperlipidemia, mood disorder, gastroesophageal reflux disease who presents to the emergency department for evaluation of dyspnea. #. Acute exacerbation of COPD: Will admit patient with scheduled and p.r.n. Marysebs. Continue home inhalers. Initiating IV azithromycin for pleiotropic effect. Also initiating systemic steroids #. Acute lactic acidosis due to albuterol use. Tachypnea and tachypnea due to above. No sepsis #. Mood disorder: Continue home mood stabilizers #. Mixed hyperlipidemia: On statin #. Gastroesophageal reflux disease: On PPI Med rec pending DVT prophylaxis: Lovenox DNR/DNI. Discussed with patient at bedside Quality Stroke Does the patient have a stroke diagnosis?: No VTE Prior VTE?: No VTE Risk Level:: Medical - moderate - high VTE Device Contraindication: Treatment Not Indicated VTE Drug Contraindication: N/A - Med Ordered
[2024-01-31] MEDS: Azithromycin 500 MG in 0.9 % Sodium Chloride 250 ML 125 MG IV (02:35)
[2024-01-31] MEDS: Enoxaparin Sodium 40 MG/0.4 ML SYRINGE SUBCUT (02:35)
[2024-01-31 04:55] LABS: Basophils Percent Auto 0.1 % (0-2); Eosinophils Percent Auto 0.1 % (0-4); Hematocrit 39.1 % (37.0-47.0); Hemoglobin 13.3 g/dl (12.0-16.0); Imm Gran Abs Auto 0.02 X10*3/uL (0.00-0.03); Imm Gran Pct Auto 0.3 % (0.0-0.4); Lymphocytes Absolute Auto 0.7 X10*3/uL (1.2-4.9); Lymphocytes Percent Auto 9.7 % (20-40); MANUAL DIFF FLAG SCAN; Mean Corpuscular Hemoglobin 29.8 pg (27.0-33.0); Mean Corpuscular Volume 87.5 fL (80.0-98.0); Mean Platelet Volume 8.8 fL (9.4-12.3); Monocytes Absolute Auto 0.1 X10*3/uL (0.1-1.2); Monocytes Percent Auto 0.7 % (2-11); Neutrophils Absolute Auto 6.2 x10*3/uL (2.0-8.3); Neutrophils Percent Auto 89.1 % (45-73); Platelet Count 260 X10*3/uL (160-400); Red Blood Count 4.47 X10*6/uL (4.20-5.50); Red Cell Distribution Width 13.6 % (11.0-16.0); SCAN SMEAR FLAG 1; White Blood Count 6.9 X10*3/uL (4.8-10.8)
[2024-01-31 05:11] LABS: Anion Gap 14 (12-20); Blood Urea Nitrogen 14 mg/dL (9-16); Calcium 9.4 mg/dL (8.4-10.2); Carbon Dioxide 22 mmol/L (22-29); Chloride 105 mmol/L (96-108); Creatinine Clr Calc Pharmacy 46.1; Estimated Glomerular Filt Rate > 60; Glucose Random 145 mg/dL (60-115); Potassium 4.4 mmol/L (3.3-5.1); Sodium 137 mmol/L (135-145)
[2024-01-31 05:14] LABS: SLIDE REVIEW VERIFIED
[2024-01-31] MEDS: Albuterol/Iprat 2.5/0.5MG 3 ML AMPUL.NEB INHALE (07:43)
--- NOTE | 2024-01-31 08:38 | PC.NURSE ---
After pt received breathing rx from RT, pt had increased SOB and hypoxia to 85%. Pt appeared to have increased WOB. RT at bedside, placed on 2L O2 via NC with improvements but reported she still feels unwell. Provider notified and orders placed.
[2024-01-31] MEDS: 0.9 % Sodium Chloride Flush 3 ML SYRINGE IVFLUSH ×3 (08:47→21:00)
[2024-01-31] MEDS: methylPREDNISolone Sod Succ 40 MG/ML VIAL IVPUSH ×2 (08:48→19:27)
--- NOTE | 2024-01-31 09:41 | PHA.MEDREC ---
Addendum entered by Hill Rosario RPh 01/31/24 10:11: med rec checked by [facility] Original Note: Pharmacy Consult ? Medication Reconciliation Pharmacy has completed the medication reconciliation. Spoke to patient to confirm med list. Patent was able to named all her medication and frequency. Patient stated she takes Quetiapine 12.5 mg (1/2 of 25 mg) at bedtime, Claims states 25 mg at bedtime. Patient says she only takes omeprazole as need. she last took her medication yesterday in the after noon. Patient states she has her medications with her.
[2024-01-31 10:11] LABS: B Type Natriuretic Peptide 28 pg/mL (<100); Troponin-I High Sensitivity 5.5 ng/L (<3.5-17.0)
--- NOTE | 2024-01-31 10:48 | MHC.CM.PN ---
CM met with Patient at bedside, in the ED, and addressed CORD[facility] with her, providing Patient with the original and a copy has been placed on the chart. 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 Home/self care is the goal and CM has initiated and will follow for dc planning. PCP is Dr. Jermain Rboerson and her Daughter/HCP/Josee will transport to home.
--- NOTE | 2024-01-31 13:05 | MHC.CM.PN ---
Patient has been changed from OBSERVATION to INPATIENT; CM met with Patient and addressed IMM with her(original has been given to Patient and a copy will be placed on the chart).
[2024-01-31] MEDS: Albuterol Sulfate (0.083%) 2.5 MG/3 ML VIAL.NEB INHALE ×2 (14:07→20:09)
--- NOTE | 2024-01-31 15:27 | P.EN_ITS ---
Event Note Date of Service: 01/31/24 Event Note: seen and examined this morning follow up for COPD exacerbation Reportedly had episode of shortness of breath and hypoxia following breathing treatment this morning. Duo nebs changed to albuterol and has received albuterol updraft without issue. trop, BNP negative; repeat CXR negative Acute respiratory failure with hypoxia due to Acute exacerbation of COPD on chronic steroids %mg daily (does not have olive knocker) Continue scheduled and p.r.n. breathing treatments Continue systemic steroids Flu, RSV, covid negative; check full RPP Remainder of assessment and plan as per admission H& P Time Spent With Patient Time: Total time managing care of this patient today ____ minutes.
[2024-01-31] MEDS: QUEtiapine Fumarate 25 MG TABLET 12.5 MG PO (20:57)
[2024-02-01] VITALS (8 sets, daily range): BP systolic 101–137; BP diastolic 56–79; PULSE 82–100; RESP 16–18; TEMP 36–36.4; O2SAT 93–99
[2024-02-01] MEDS: Azithromycin 500 MG in 0.9 % Sodium Chloride 250 ML 125 MG IV (03:13)
[2024-02-01] MEDS: Enoxaparin Sodium 40 MG/0.4 ML SYRINGE SUBCUT (03:18)
[2024-02-01] MEDS: methylPREDNISolone Sod Succ 40 MG/ML VIAL IVPUSH (08:34)
[2024-02-01] MEDS: Atorvastatin Calcium 20 MG TABLET PO (08:34)
[2024-02-01] MEDS: 0.9 % Sodium Chloride Flush 3 ML SYRINGE IVFLUSH ×3 (08:41→20:30)
--- NOTE | 2024-02-01 10:23 | MHC.CM.PN ---
Per MD rounds not medically cleared for dc. CM will continue to follow.
[2024-02-01] MEDS: DULoxetine HCl 20 MG CAPSULE.DR 40 MG PO (10:43)
[2024-02-01 11:08] LABS: Adenovirus PCR Not Detected (Not Detect.); Bordetella parapertussis PCR Not Detected (Not Detect.); Bordetella pertussis PCR Not Detected (Not Detect.); Chlamydia pneumoniae PCR Not Detected (Not Detect.); Coronavirus 229E PCR Not Detected (Not Detect.); Coronavirus HKU1 PCR Not Detected (Not Detect.); Coronavirus NL63 PCR Not Detected (Not Detect.); Coronavirus OC43 PCR Not Detected (Not Detect.); Human metapneumovirus PCR Not Detected (Not Detect.); Influenza A PCR Not Detected (Not Detect.); Influenza B PCR Not Detected (Not Detect.); Mycoplasma pneumoniae PCR Not Detected (Not Detect.); Parainfluenza 1 PCR Not Detected (Not Detect.); Parainfluenza 2 PCR Not Detected (Not Detect.); Parainfluenza 3 PCR Not Detected (Not Detect.); Parainfluenza 4 PCR Not Detected (Not Detect.); RSV PCR Not Detected (Not Detect.); Rhino/Enterovirus PCR Detected (Not Detect.)
[2024-02-01 11:37] LABS: SARS-CoV-2 PCR Not Detected (Not Detect.)
--- NOTE | 2024-02-01 13:53 | P.PNIM_ITS ---
Subjective Subjective Date of Service: 02/01/24 Interval History: Seen and examined this morning Follow-up for COPD exacerbation Slowly improving RPP + for rhino/enerovirus Review of Systems Review of Systems: Yes all other systems are reviewed and are negative Constitutional Constitutional: Denies chills and Denies fever(s) Cardiovascular Cardiovascular: Denies chest pain Physical Exam 2 Vital Signs: Vital Signs: Last Vital Signs Temp 97.6 F 02/01/24 07:57 Pulse 92 02/01/24 07:57 Resp 18 02/01/24 07:57 BP 106/56 L 02/01/24 07:57 Pulse Ox 95 02/01/24 07:57 O2 Del Method Room Air 02/01/24 07:57 O2 Flow Rate 2 02/01/24 03:05 BMI result Body Mass Index 20.8 Const: Nutritional Appearance: well nourished Orientation/consciousness: p atient oriented x3 HEENT: Head: Yes normocephalic and Yes atraumatic Eyes: Sclerae: sclerae normal Chest: Chest palpation & inspection: normal inspection of the chest Resp: Other: Diminished Effort & Inspection: normal respiratory effort and no respiratory distress Cardio: Rate: regular rate Rhythm: regular rhythm GI: Palpation (GI): Soft to palpation and nontender Neuro: General: patient oriented x3 Cranial nerves: Yes CN's II-XII intact bilaterally Extrem: General: Yes normal to inspection Objective Data Active Medications Acetaminophen (Acetaminophen 325 Mg Tablet) 650 mg PO Q6H PRN PRN Reason: Pain, Mild (Pain Scale 1-3), fever or headache Atorvastatin Calcium (Atorvastatin Calcium 20 Mg Tablet) 20 mg PO DAILY [facility] Last Admin: 02/01/24 08:34 Dose: 20 mg Documented By: CARRI Benzonatate (Benzonatate 100 Mg Capsule) 100 mg PO TID PRN PRN Reason: Cough Calcium Carbonate (Calcium Carbonate 750 Mg Tab.Chew) 750 mg PO Q4H PRN PRN Reason: Heartburn Duloxetine HCl (Duloxetine Hcl 20 Mg Capsule.Dr) 40 mg PO DAILY [facility] Last Admin: 02/01/24 10:43 Dose: 40 mg Documented By: CARRI Enoxaparin Sodium (Enoxaparin Sodium 40 Mg/0.4 Ml Syringe) 40 mg SUBCUT Q24H [facility] Last Admin: 02/01/24 03:18 Dose: 40 mg Documented By: CUONG Fluticasone/Umeclidinium/Vilanterol (Fluticasone/Umeclidinium/Vilanterol 100/62.5/25 Blst.W.Dev) 1 puff INHALE RDAILY [facility] Last Admin: 02/01/24 11:51 Dose: Not Given Documented By: TOYIN Non-Admin Reason: Patient Refused Azithromycin 500 mg/ Sodium (Chloride) 250 mls @ 125 mls/hr IV Q24H [facility] Last Infusion: 02/01/24 05:20 Dose: Infused Documented By: CUONG Levalbuterol HCl (Levalbuterol Hcl 1.25 Mg/3 Ml Vial.Neb) 1.25 mg INHALE Q4H PRN PRN Reason: Shortness of Breath/Wheezing Levalbuterol HCl (Levalbuterol Hcl 1.25 Mg/3 Ml Vial.Neb) 1.25 mg INHALE RTID [facility] Magnesium Hydroxide (Milk Of Magnesia 30 Ml Oral.Susp) 30 ml PO DAILY PRN PRN Reason: Constipation Melatonin (Melatonin 3 Mg Tablet) 6 mg PO BEDTIME PRN PRN Reason: Insomnia Methylprednisolone Sodium Succinate (Methylprednisolone Sod Succ 40 Mg/Ml Vial) 40 mg IVPUSH Q12H [facility] Last Admin: 02/01/24 08:34 Dose: 40 mg Documented By: CARRI Omeprazole (Omeprazole 20 Mg Capsule.Dr) 20 mg PO DAILY@0630 PRN PRN Reason: Acid Reflux Ondansetron HCl (Ondansetron Hcl 4 Mg/2 Ml Vial) 4 mg IVPUSH Q8H PRN PRN Reason: Nausea and Vomiting Quetiapine Fumarate (Quetiapine Fumarate 25 Mg Tablet) 12.5 mg PO BEDTIME [facility] Last Admin: 01/31/24 20:57 Dose: 12.5 mg Documented By: CUONG Sodium Chloride (0.9 % Sodium Chloride Flush 3 Ml Syringe) 3 ml IVFLUSH QSHIFT [facility] Last Admin: 02/01/24 08:41 Dose: 3 ml Documented By: CARRI Labs 01/31/24 04:43 01/31/24 04:43 Labs: Laboratory Results - last 24 hr 01/31/24 17:52 Respiratory Panel Jenkins See Note Adenovirus (Rapid PCR) Not Detected B.pert (TEM-PCR) Not Detected B.parapertussis DNA PCR Not Detected C. pneumoniae DNA (PCR) Not Detected Coronavirus OC43 (PCR) Not Detected Coronavirus HKU1 (PCR) Not Detected Coronavirus 229E (PCR) Not Detected Coronavirus NL63 (PCR) Not Detected Human Metapneumovir PCR Not Detected Influenza A (RT-PCR) Not Detected Influenza B (RT-PCR) Not Detected M. pneumoniae (PCR) Not Detected Parainfluenza 1 (PCR) Not Detected Parainfluenza 2 (PCR) Not Detected Parainfluenza 3 (PCR) Not Detected Parainfluenza 4 (PCR) Not Detected RSV (PCR) Not Detected Entero/Rhino (PCR) Detected A SARS-CoV-2 RNA (RT-PCR) Not Detected Assessment and Plan (1) Rhinovirus infection: Status: Acute (2) COPD (chronic obstructive pulmonary disease): Status: Acute Plan This is 78-year-old female with pertinent history of COPD not on home oxygen, former tobacco use disorder, mixed hyperlipidemia, mood disorder, gastroesophageal reflux disease who presents to the emergency department for evaluation of dyspnea. 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 breathing treatments Continue systemic steroids Flu, RSV, covid negative RPP + for rhino/enterovirus Acute lactic acidosis due to albuterol use. Tachypnea and tachypnea due to above. No sepsis Mood disorder: Continue home mood stabilizers Mixed hyperlipidemia: On statin DVT prophylaxis: Lovenox DNR/DNI. Discussed with patient at bedside Quality Stroke Does the patient have a stroke diagnosis?: No VTE Prior VTE?: No VTE Risk Level:: Medical - moderate - high VTE Device Contraindication: Treatment Not Indicated VTE Drug Contraindication: N/A - Med Ordered
[2024-02-01] MEDS: levalbuterol HCL 1.25 MG/3 ML VIAL.NEB INHALE (15:28)
[2024-02-01] MEDS: QUEtiapine Fumarate 25 MG TABLET 12.5 MG PO (20:25)
[2024-02-02] VITALS (7 sets, daily range): BP systolic 100–135; BP diastolic 55–71; PULSE 65–89; RESP 16–18; TEMP 36–37.2; O2SAT 92–96
[2024-02-02] MEDS: Enoxaparin Sodium 40 MG/0.4 ML SYRINGE SUBCUT (03:33)
[2024-02-02] MEDS: Atorvastatin Calcium 20 MG TABLET PO (08:52)
[2024-02-02] MEDS: predniSONE 20 MG TABLET 40 MG PO (08:53)
[2024-02-02] MEDS: 0.9 % Sodium Chloride Flush 3 ML SYRINGE IVFLUSH ×3 (08:53→20:47)
[2024-02-02] MEDS: DULoxetine HCl 20 MG CAPSULE.DR 40 MG PO (08:53)
[2024-02-02] MEDS: levalbuterol HCL 1.25 MG/3 ML VIAL.NEB INHALE ×2 (10:03→17:36)
[2024-02-02] MEDS: guaiFENesin LA 600 MG TAB.ER.12H PO ×2 (10:59→20:46)
--- NOTE | 2024-02-02 15:06 | P.PNIM_ITS ---
Subjective Subjective Date of Service: 02/02/24 Interval History: Seen and this morning Follow-up for COPD exacerbation/rhino virus Feeling better this morning but still having dyspnea exertion Review of Systems Review of Systems: Yes all other systems are reviewed and are negative Constitutional Constitutional: Denies chills and Denies fever(s) Cardiovascular Cardiovascular: Denies chest pain, Denies palpitations and Reports dyspnea on exertion Respiratory Respiratory: Reports cough and Reports dyspnea on exertion Endocrine Endocrine: Denies palpitations Physical Exam 2 Vital Signs: Vital Signs: Last Vital Signs Temp 99.0 F 02/02/24 07:39 Pulse 88 02/02/24 10:03 Resp 16 02/02/24 10:03 BP 102/56 L 02/02/24 07:39 Pulse Ox 96 02/02/24 08:58 O2 Del Method Room Air 02/02/24 08:58 O2 Flow Rate 2 02/01/24 03:05 BMI result Body Mass Index 20.8 Const: Nutritional Appearance: well nourished Orientation/consciousness: p atient oriented x3 HEENT: Head: Yes normocephalic and Yes atraumatic Eyes: Sclerae: sclerae normal Chest: Chest palpation & inspection: normal inspection of the chest Resp: Other: Diminished Effort & Inspection: normal respiratory effort and no respiratory distress Cardio: Rate: regular rate Rhythm: regular rhythm GI: Palpation (GI): Soft to palpation and nontender Neuro: General: patient oriented x3 Cranial nerves: Yes CN's II-XII intact bilaterally Extrem: General: Yes normal to inspection Objective Data Active Medications Acetaminophen (Acetaminophen 325 Mg Tablet) 650 mg PO Q6H PRN PRN Reason: Pain, Mild (Pain Scale 1-3), fever or headache Atorvastatin Calcium (Atorvastatin Calcium 20 Mg Tablet) 20 mg PO DAILY [facility] Last Admin: 02/02/24 08:52 Dose: 20 mg Documented By: KAYLI Benzonatate (Benzonatate 100 Mg Capsule) 100 mg PO TID PRN PRN Reason: Cough Calcium Carbonate (Calcium Carbonate 750 Mg Tab.Chew) 750 mg PO Q4H PRN PRN Reason: Heartburn Duloxetine HCl (Duloxetine Hcl 20 Mg Capsule.Dr) 40 mg PO DAILY [facility] Last Admin: 02/02/24 08:53 Dose: 40 mg Documented By: KAYLI Enoxaparin Sodium (Enoxaparin Sodium 40 Mg/0.4 Ml Syringe) 40 mg SUBCUT Q24H [facility] Last Admin: 02/02/24 03:33 Dose: 40 mg Documented By: CUONG Fluticasone/Umeclidinium/Vilanterol (Fluticasone/Umeclidinium/Vilanterol 100/62.5/25 Blst.W.Dev) 1 puff INHALE RDAILY [facility] Last Admin: 02/02/24 07:41 Dose: Not Given Documented By: SUDHA Non-Admin Reason: Patient Refused Guaifenesin (Guaifenesin La 600 Mg Tab.Er.12h) 600 mg PO BID [facility] Last Admin: 02/02/24 10:59 Dose: 600 mg Documented By: KAYLI Levalbuterol HCl (Levalbuterol Hcl 1.25 Mg/3 Ml Vial.Neb) 1.25 mg INHALE Q4H PRN PRN Reason: Shortness of Breath/Wheezing Last Admin: 02/02/24 10:03 Dose: 1.25 mg Documented By: SUDHA Magnesium Hydroxide (Milk Of Magnesia 30 Ml Oral.Susp) 30 ml PO DAILY PRN PRN Reason: Constipation Melatonin (Melatonin 3 Mg Tablet) 6 mg PO BEDTIME PRN PRN Reason: Insomnia Omeprazole (Omeprazole 20 Mg Capsule.Dr) 20 mg PO DAILY@0630 PRN PRN Reason: Acid Reflux Ondansetron HCl (Ondansetron Hcl 4 Mg/2 Ml Vial) 4 mg IVPUSH Q8H PRN PRN Reason: Nausea and Vomiting Prednisone (Prednisone 20 Mg Tablet) 40 mg PO DAILY [facility] Last Admin: 02/02/24 08:53 Dose: 40 mg Documented By: KAYLI Quetiapine Fumarate (Quetiapine Fumarate 25 Mg Tablet) 12.5 mg PO BEDTIME [facility] Last Admin: 02/01/24 20:25 Dose: 12.5 mg Documented By: CUONG Sodium Chloride (0.9 % Sodium Chloride Flush 3 Ml Syringe) 3 ml IVFLUSH QSHIFT [facility] Last Admin: 02/02/24 08:53 Dose: 3 ml Documented By: KAYLI Sodium Chloride (Sodium Chloride 0.65 % Nasal 44 Ml Sprbtl) 1 spray NOSTRIL-B Q1H PRN PRN Reason: Nasal Congestion Labs 01/31/24 04:43 01/31/24 04:43 Assessment and Plan (1) COPD (chronic obstructive pulmonary disease): Status: Acute (2) Rhinovirus infection: Status: Acute Plan This is 78-year-old female with pertinent history of COPD not on home oxygen, former tobacco use disorder, mixed hyperlipidemia, mood disorder, gastroesophageal reflux disease, Left subclavian stenosis who presents to the emergency department for evaluation of dyspnea. 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 breathing treatments Continue systemic steroids - will transition to po prednisone Flu, RSV, covid negative Acute lactic acidosis due to albuterol use. Tachypnea and tachypnea due to above. No sepsis Mood disorder: Continue home mood stabilizers Mixed hyperlipidemia: On statin DVT prophylaxis: Lovenox DNR/DNI Quality Stroke Does the patient have a stroke diagnosis?: No VTE Prior VTE?: No VTE Risk Level:: Medical - moderate - high VTE Device Contraindication: Treatment Not Indicated VTE Drug Contraindication: N/A - Med Ordered
[2024-02-02] MEDS: Sodium Chloride 0.65 % Nasal 44 ML SPRBTL 1 SPRAY NOSTRIL-B (18:38)
--- NOTE | 2024-02-02 18:47 | PC.NURSE ---
Pt with dyspnea on exertion. Able to ambulate 50 feet wearing 2L o2. O2 sat 96% on 2L with ambulation. 96% room air at rest. Congested cough. On mucinex. Lungs faint wheezes, diminished in bases. Encouraged pursed lip breathing. PRN xopenex after ambulating with good effect.
[2024-02-02] MEDS: QUEtiapine Fumarate 25 MG TABLET 12.5 MG PO (20:47)
[2024-02-03 07:59] VITALS: BP 125/81; PULSE 65; RESP 16; TEMP 36; O2SAT 92
[2024-02-03] MEDS: 0.9 % Sodium Chloride Flush 3 ML SYRINGE IVFLUSH (09:04)
[2024-02-03] MEDS: predniSONE 20 MG TABLET 40 MG PO (09:05)
[2024-02-03] MEDS: guaiFENesin LA 600 MG TAB.ER.12H PO (09:05)
[2024-02-03] MEDS: Atorvastatin Calcium 20 MG TABLET PO (09:06)
[2024-02-03] MEDS: DULoxetine HCl 20 MG CAPSULE.DR 40 MG PO (10:21)
[2024-02-03 11:01] VITALS: PULSE 88; PULSE 96; O2SAT 94; O2SAT 97
--- NOTE | 2024-02-03 12:56 | P.DS_ITS ---
DS: Providers Provider Date of Service: 02/03/24 Date of admission: 01/31/24 11:26 Date of discharge: 02/03/24 Primary care physician: Jermain Roberson MD Attending physician on discharge: Ana Paula Mike Discharging clinician: Mariia Kauffman DS: Diagnosis Discharge Diagnosis (1) COPD (chronic obstructive pulmonary disease): Status: Acute (2) Rhinovirus infection: Status: Acute DS: Summary Hospital Course Hospital Course: From H&P on the day of admission This is 78-year-old female with pertinent history of COPD not on home oxygen, former tobacco use disorder, mixed hyperlipidemia, mood disorder, gastroesophageal reflux disease who presents to the emergency department for evaluation of dyspnea. Patient states her symptoms started 3 days prior to presentation. She has been having dyspnea which is worse with exertion. Also had associated whitish thick sputum production. Does endorse wheezing which is not resolved with home inhaler. No fever or chills. No chest pain or palpitations. Denies nausea, vomiting, abdominal pain, changes in urinary or bowel habits. In the emergency department, patient with wheezing despite multiple DuoNeb treatments. Also received IV steroids in the ER Acute respiratory failure with hypoxia due to Acute exacerbation of COPD due to underlying rhino/enterovirus weaned to room air at rest, and eventually on exertion as well. Did not tolerate DuoNeb or albuterol breathing treatments well due to increased shortness of breath and anxiety following treatments. Changed to Xopenex breathing treatments with good effect. Flu, RSV, COVID negative. On chronic systemic steroids at baseline, we will discharge with longer prednisone taper and Xopenex nebulized solution. Patient had home oxygen evaluation and did not qualify for supplemental oxygen at rest or with ambulation. She has been ambulating in her room and down the hallway without shortness of breath and is stable for discharge home. Acute lactic acidosis due to albuterol use. Tachypnea and tachypnea due to above. No sepsis. Resolved. Time Attestation Discharge Coordination Time (in mins): 35 Quality: Safe Use of Opioids Does Pt have an Active Cancer Diagnosis on the Problem List?: No Quality: Stroke Does the patient have a stroke diagnosis?: No Physical Exam Vital Signs: Vital Signs: Last Vital Signs Temp 96.8 F 02/03/24 07:59 Pulse 65 10/20/24 07:59 Resp 16 02/03/24 07:59 BP 125/81 02/03/24 07:59 Pulse Ox 92 02/03/24 07:59 O2 Del Method Room Air 02/03/24 07:59 O2 Flow Rate 2 02/01/24 03:05 BMI result Body Mass Index 20.8 Const: Nutritional Appearance: well nourished Orientation/consciousness: patient oriented x3 HEENT: Head: Yes normocephalic and Yes atraumatic Eyes: Sclerae: sclerae normal Chest: Chest palpation & inspection: normal inspection of the chest Resp: Effort & Inspection: normal respiratory effort and no respiratory distress Cardio: Rate: regular rate Rhythm: regular rhythm GI: Palpation (GI): Soft to palpation and nontender Neuro: General: patient oriented x3 Cranial nerves: Yes CN's II-XII intact bilaterally Extrem: General: Yes normal to inspection Discharge Plan Discharge Anticipated Discharge Date/Time: 02/03/24 13:15 Patient Disposition: Home, Self-Care Discharge Diagnosis: Acute exacerbation of COPD Referrals: Jermain Roberson MD [Primary Care Provider] - 1 Week Discharge Medications: New levalbuterol HCl 1.25 mg/3 mL Solution For Nebulization 1.25 mg inhalation Q4H PRN (Reason: Shortness Of Breath/Wheezing) Qty: 72 0RF prednisone 10 mg tablet See Taper PO DIRECTED Qty: 30 0RF Taper: Prednisone 40 mg daily for 3 Days and 0 Hour 30 mg daily for 3 Days and 0 Hour 20 mg daily for 3 Days and 0 Hour 10 mg daily for 3 Days and 0 Hour Rx Instructions: see taper instructions benzonatate 100 mg Capsule 100 mg PO TID PRN (Reason: Cough) Qty: 20 0RF Continued prednisone 5 mg tablet 1 tab PO DAILY omeprazole 20 mg capsule,delayed release(DR/EC) 1 cap PO DAILY@0630 PRN (Reason: Acid Reflux) quetiapine 25 mg tablet 12.5 mg PO BEDTIME atorvastatin 20 mg tablet 20 mg PO DAILY duloxetine 20 mg capsule,delayed release(DR/EC) 40 mg PO DAILY Trelegy Ellipta 100-62.5-25 mcg blister with device 1 ea inhalation DAILY Discontinued albuterol sulfate 2.5 mg /3 mL (0.083 %) solution for nebulization 1 vial inhalation Q6H PRN (Reason: wheezing) Discharge Orders: Discharge Order (Routine); Ordered 02/03/24 Ordered By: Mariia Kauffman Activity on Discharge: As tolerated Stand Alone Forms: Patient Portal Discharge page Print Language: [place] Care Plan Goals: See below Health Concerns: Acute respiratory failure with hypoxia Acute exacerbation of COPD due to rhino virus/enterovirus Plan of Treatment: Complete prednisone taper and then returned to baseline prednisone dose Xopenex breathing treatments as needed Consider outpatient follow-up with puttying and 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
--- NOTE | 2024-02-03 15:29 | MHC.CM.PN ---
PT WILL DC HOME TODAY WITH NO SERVICES VIA FAMILY TRANSPORT
--- NOTE | 2024-02-04 11:15 | P.F2F_ITS ---
Service Date Service Date: 02/04/24 Encounter Date of encounter: 02/04/24 Reasons for Services Signs and symptoms assessed: respiratory status, hypoxia Reason for chcf: medication management and teach disease management Reason for physical therapy: home safety and mobility and therapeutic exercises Overseeing Care: Jermain Roberson Homebound: Leaving the home is medically contraindicated at this time without the asist of a device and/or another person due th the listed conditions above and below. Reason homebound: shortness of breath with minimal effort Certification: Based on the above findings, I certify that this patient is confined to the home and needs intermittent chcf care, physical therapy and/or speech therapy, or continues to need occupational therapy. The patient is under my care, and I have initiated the establishment of the plan of care. The patient will be followed by a physician who will periodically review the plan of care. Time Spent With Patient Time: Total time managing care of this patient today ____ minutes.
== END 2024-02-03 14:26 | disposition home or self-care (01) | DRG 190 ==
LOC: HO.ED 01-31 01:26 → HO.EDOVER 01-31 01:50 → HO.S3 01-31 17:37
PROVIDERS: Admitting Provider Student in an Organized Health Care Education/Training Program; Emergency Provider Student in an Organized Health Care Education/Training Program; PCP Internal Medicine; Visit Provider Physician Assistant Medical
DX: J44.1 Chronic obstructive pulmonary disease with (acute) exacerbation (principal); J96.01 Acute respiratory failure with hypoxia; E87.1 Hypo-osmolality and hyponatremia; B97.89 Other viral agents as the cause of diseases classified elsewhere; B97.10 Unspecified enterovirus as the cause of diseases classified elsewhere; Z66 Do not resuscitate; F39 Unspecified mood [affective] disorder; K21.9 Gastro-esophageal reflux disease without esophagitis; E78.2 Mixed hyperlipidemia; Z79.52 Long term (current) use of systemic steroids; Z79.899 Other long term (current) drug therapy
CPT/HCPCS: 0241U; 36415; 71045; 71046; 71275; 80048; 80053; 82803; 83605; 83735; 83880; 84484; 85025; 87633; 93005; 99221; 99285; J0456; J0696; J1650; J2919; Q9967

== ENCOUNTER → 2024-01-30 18:59 | Outpatient (BNV) | payer MEDICARE, SELFPAY | PROVIDERS: Admitting Provider Student in an Organized Health Care Education/Training Program; Emergency Provider Student in an Organized Health Care Education/Training Program; PCP Internal Medicine; Visit Provider Internal Medicine | DX: R06.02 Shortness of breath (principal) | CPT/HCPCS: 93010 ==

== ENCOUNTER → 2024-01-31 01:40 | Outpatient (BNV) | payer MEDICARE, SELFPAY | PROVIDERS: Admitting Provider Student in an Organized Health Care Education/Training Program; Emergency Provider Student in an Organized Health Care Education/Training Program; Visit Provider Student in an Organized Health Care Education/Training Program | DX: J44.9 Chronic obstructive pulmonary disease, unspecified (principal); B34.8 Other viral infections of unspecified site | CPT/HCPCS: 99222; 99232; 99239; 99499; G0180 ==

== ENCOUNTER 2025-01-29 11:05 | Emergency (ER) | payer MEDICARE, SELFPAY ==
[2025-01-29] VITALS (7 sets, daily range): BP systolic 97–124; BP diastolic 57–83; PULSE 73–98; RESP 18–22; TEMP 36.4; O2SAT 94–98; BMI 18.3
--- NOTE | ~2025-01-29 | CT_ITS ---
EXAMINATION: CT ABDOMEN PELVIS WITH IV CONTRAST HISTORY: right lower abd pain COMPARISON: Comparison is made with the prior examination dated 08/19/2020. TECHNIQUE: CT scan of the abdomen and pelvis was performed following administration of 85 mL Omnipaque 350 using standard departmental protocol. Coronal and sagittal reformatted images were generated and reviewed. Oral contrast material was not administered at the request of the referring physician. This CT exam was performed with one or more of the following dose reduction techniques: automated exposure control, adjustment of the mA and/or kV according to patient size, use of iterative reconstruction technique. DLP: 275 mGy-cm FINDINGS: LOWER CHEST: The visualized lung bases are clear. There is no pleural effusion. CARDIOVASCULATURE: The heart is normal in size. There is no pericardial effusion. LIVER: The liver is normal in size and contour. No liver mass is identified. The hepatic and portal veins are patent. GALLBLADDER / BILE DUCTS: The gallbladder is unremarkable. There is no intra or extrahepatic biliary ductal dilatation. SPLEEN: The spleen is normal in size. No focal splenic lesion is identified. PANCREAS: The pancreas is unremarkable in appearance. ADRENAL GLANDS: Within normal limits. KIDNEYS/RETROPERITONEUM: No renal calculi are identified. There is no hydronephrosis. There are multiple right renal cysts measuring up to 1.8 cm in size. LYMPH NODES: No abdominal or pelvic lymphadenopathy. VASCULATURE: The abdominal aorta demonstrates atherosclerotic calcification, but is normal in caliber. MESENTERY/PERITONEUM: No free fluid. No masses. There is no free intraperitoneal gas. STOMACH: The stomach is collapsed, limiting evaluation. SMALL BOWEL: The small bowel is normal in caliber. COLON: There are postsurgical changes involving the cecum. There is diverticulosis of the sigmoid colon, without evidence of diverticulitis. APPENDIX: The appendix is surgically absent. URINARY BLADDER/PELVIC ORGANS: The urinary bladder is unremarkable. The patient is status post hysterectomy. BONES / SOFT TISSUES: No suspicious bony or soft tissue abnormalities. CT/CT abdomen pelvis w IV con IMPRESSION: Sigmoid diverticulosis without evidence of diverticulitis. No acute abnormality is identified. Electronically signed by: Justice Moreno MD 01/29/2025 02:52 PM EDT
--- NOTE | 2025-01-29 11:28 | ED.GENADULT ---
HPI - General Adult General Chief complaint: Abdominal Pain Stated complaint: UTI? Time Seen by Provider: 01/29/25 13:51 Related Data Home Medications ?Medication ?Instructions ?Recorded ?Confirmed omeprazole 20 mg capsule,delayed 1 cap PO DAILY@0630 PRN Acid Reflux 08/19/20 01/31/24 release prednisone 5 mg tablet 1 tab PO DAILY 08/19/20 01/31/24 atorvastatin 20 mg tablet 20 mg PO DAILY 01/31/24 01/31/24 duloxetine 20 mg capsule,delayed 40 mg PO DAILY 01/31/24 01/31/24 release fluticasone fur. 100 mcg-umeclid 1 ea inhalation DAILY 01/31/24 01/31/24 62.5 mcg-vilant 25 mcg inhalat.powder (Trelegy Ellipta) quetiapine 25 mg tablet 12.5 mg PO BEDTIME 01/31/24 01/31/24 Previous Rx's ?Medication ?Instructions ?Recorded benzonatate 100 mg capsule 100 mg PO TID PRN Cough #20 caps 02/03/24 levalbuterol HCl 1.25 mg/3 mL 1.25 mg (3 mL) inhalation Q4H PRN 02/03/24 solution for nebulization Shortness Of Breath/Wheezing #72 mL prednisone 10 mg tablet See Taper PO DIRECTED #30 tabs 02/03/24 vancomycin 125 mg capsule 125 mg PO QID #40 caps 01/29/25 Allergies Allergy/AdvReac Type Severity Reaction Status Date / Time No Known Allergies Allergy Verified 01/29/25 11:27 [facility] Past Medical History Medical History High cholesterol Anxiety Diverticulosis IBS (irritable bowel syndrome) COPD (chronic obstructive pulmonary disease) Surgical History History of back surgery History of partial colectomy Social History Social History Household Members: None Patient Tobacco Use Status: Never used Tobacco Smoked in Last 30 Days: No Use of substances other than those prescribed or required for medical reasons: No Advance Directives: No Advance Directives Information Provided: Yes service: No Physical Exam ED Vital Signs: Vital Signs - 24 hr 01/29/25 11:26 01/29/25 14:00 01/29/25 14:02 Temperature 97.6 F Pulse Rate 98 77 73 Respiratory Rate 18 22 H Blood Pressure 102/61 102/57 L 109/59 L Pulse Oximetry 96 94 Oxygen Delivery Method Room Air Room Air 01/29/25 14:16 01/29/25 14:16 01/29/25 14:17 Temperature Pulse Rate 79 73 75 Respiratory Rate Blood Pressure 109/59 L 97/63 102/57 L Pulse Oximetry Oxygen Delivery Method 01/29/25 15:58 01/29/25 16:20 Temperature 97.5 F 97.5 F Pulse Rate 84 84 Respiratory Rate 18 18 Blood Pressure 124/83 124/83 Pulse Oximetry 98 98 Oxygen Delivery Method Room Air Room Air BMI result Body Mass Index 18.3 Course Course Course Narrative: REM: 79 yold female with pmh of recurrent UTIs, and kidney stones presents to the ED for urinary sytmpsom, diarrhea, right flank pain, and chills. patient recently placed on ciprofloxacin for UTI. labs, stool sampled ordered Medications Administered Discontinued Medications Generic Name Dose Route Start Last Admin Trade Name Freq PRN Reason Stop Dose Admin Lactated Ringer's 1,000 mls @ 999 mls/hr 01/29/25 14:00 01/29/25 15:44 Lr IV 01/29/25 15:00 Infused .Q1H1M JUD Infusion Iohexol 100 ml 01/29/25 14:43 01/29/25 14:43 Iohexol 350 Mg/Ml 100 Ml Infus..Btl IV 01/29/25 14:44 85 ml ONCE ONE Administration Medical Decision Making Lab Data 01/29/25 12:01 01/29/25 12:01 Labs: Lab Results 01/29/25 01/29/25 Range/Units 12:01 14:11 WBC 8.8 (4.8-10.8) X10*3/uL RBC 4.62 (4.20-5.50) X10*6/uL Hgb 13.6 (12.0-16.0) g/dl Hct 42.0 (37.0-47.0) % MCV 90.9 (80.0-98.0) fL MCH 29.4 (27.0-33.0) pg MCHC 32.4 (31.0-35.0) g/dl RDW 13.8 (11.0-16.0) % Plt Count 262 (160-400) X10*3/uL MPV 8.7 L (9.4-12.3) fL Immature Gran % (Auto) 0.5 H (0.0-0.4) % Neut % (Auto) 77.8 H (45-73) % Lymph % (Auto) 12.1 L (20-40) % [place] % (Auto) 6.8 (2-11) % Eos % (Auto) 2.2 (0-4) % Baso % (Auto) 0.6 (0-2) % Lymph # (Auto) 1.1 L (1.2-4.9) X10*3/uL [place] # (Auto) 0.6 (0.1-1.2) X10*3/uL Eos # (Auto) 0.2 (0.0-0.4) X10*3/uL Baso # (Auto) 0.1 (0.0-0.2) X10*3/uL Abs Immat Gran (auto) 0.04 H (0.00-0.03) X10*3/uL Absolute Neuts (auto) 6.9 (2.0-8.3) x10*3/uL Absolute Nucleated RBC 0.000 (0.0-0.012) X10*3/uL Nucleated RBC % (auto) 0.0 (0.0-0.2) /100WBC Sodium 139 (135-145) mmol/L Potassium 4.2 (3.3-5.1) mmol/L Chloride 105 (96-108) mmol/L Carbon Dioxide 27 (22-29) mmol/L Anion Gap 11 L (12-20) BUN 16 (9-16) mg/dL Creatinine 0.90 (0.5-1.4) mg/dL Estim Creat Clear Calc 38.5 Estimated GFR > 60 Random Glucose 101 (60-115) mg/dL Calcium 9.6 (8.4-10.2) mg/dL Total Bilirubin 0.5 (0.0-1.0) mg/dL AST 24 (5-31) U/L ALT 25 (0-31) U/L Alkaline Phosphatase 68 (39-117) U/L Total Protein 6.7 (6.5-8.0) g/dL Albumin 4.4 (3.5-5.0) g/dL Lipase 14 (8-78) U/L Urine Color Yellow Urine Appearance Clear Urine pH 6.5 (5.0-9.0) Ur Specific [place] 1.010 (1.005-1.025) Urine Protein Negative (Neg-Trace) mg/dL Urine Glucose (UA) Negative (Negative) mg/dL Urine Ketones Negative (Negative) mg/dL Urine Blood Negative (Negative) Urine Nitrite Negative (Negative) Ur Leukocyte Esterase Negative (Negative) Discharge Plan Discharge Clinical Impression: Anxiety, C. difficile diarrhea Patient Disposition: Home, Self-Care Instructions: C. Diff (Clostridioides Difficile) Infection (ED) Prescriptions: New vancomycin 125 mg capsule 125 mg PO QID Qty: 40 0RF No Action prednisone 5 mg tablet 1 tab PO DAILY omeprazole 20 mg capsule,delayed release(DR/EC) 1 cap PO DAILY@0630 PRN (Reason: Acid Reflux) quetiapine 25 mg tablet 12.5 mg PO BEDTIME atorvastatin 20 mg tablet 20 mg PO DAILY duloxetine 20 mg capsule,delayed release(DR/EC) 40 mg PO DAILY Trelegy Ellipta 100-62.5-25 mcg blister with device 1 ea inhalation DAILY levalbuterol HCl 1.25 mg/3 mL Solution For Nebulization 1.25 mg inhalation Q4H PRN (Reason: Shortness Of Breath/Wheezing) Qty: 72 0RF prednisone 10 mg tablet See Taper PO DIRECTED Qty: 30 0RF Taper: Prednisone 40 mg daily for 3 Days and 0 Hour 30 mg daily for 3 Days and 0 Hour 20 mg daily for 3 Days and 0 Hour 10 mg daily for 3 Days and 0 Hour Rx Instructions: see taper instructions benzonatate 100 mg Capsule 100 mg PO TID PRN (Reason: Cough) Qty: 20 0RF Referrals: Jermain Roberson MD [Primary Care Provider, Medical] Interventions: ED Discharge Assessment Last Done: 01/29/25 16:20 Discharge Date/Time: 01/29/25 16:20 Print Language: [place]
[2025-01-29 12:06] LABS: MANUAL DIFF FLAG NO
[2025-01-29 12:07] LABS: Hematocrit 42.0 % (37.0-47.0); Hemoglobin 13.6 g/dl (12.0-16.0); Imm Gran Abs Auto 0.04 X10*3/uL (0.00-0.03); Imm Gran Pct Auto 0.5 % (0.0-0.4); Lymphocytes Absolute Auto 1.1 X10*3/uL (1.2-4.9); Mean Corpuscular HGB Conc 32.4 g/dl (31.0-35.0); Mean Corpuscular Hemoglobin 29.4 pg (27.0-33.0); Mean Corpuscular Volume 90.9 fL (80.0-98.0); NRBC Abs Auto 0.000 X10*3/uL (0.0-0.012); NRBC Pct Auto 0.0 /100WBC (0.0-0.2); Platelet Count 262 X10*3/uL (160-400); Red Blood Count 4.62 X10*6/uL (4.20-5.50); White Blood Count 8.8 X10*3/uL (4.8-10.8)
[2025-01-29 12:23] LABS: Alanine Aminotransferase 25 U/L (0-31); Albumin Level 4.4 g/dL (3.5-5.0); Alkaline Phosphatase 68 U/L (39-117); Anion Gap 11 (12-20); Aspartate Amino Transferase 24 U/L (5-31); Blood Urea Nitrogen 16 mg/dL (9-16); Calcium 9.6 mg/dL (8.4-10.2); Carbon Dioxide 27 mmol/L (22-29); Chloride 105 mmol/L (96-108); Creatinine Clr Calc Pharmacy 38.5; Estimated Glomerular Filt Rate > 60; Lipase 14 U/L (8-78); Potassium 4.2 mmol/L (3.3-5.1); Sodium 139 mmol/L (135-145); Total Protein 6.7 g/dL (6.5-8.0)
--- NOTE | 2025-01-29 14:00 | ED.GENADULT ---
HPI - General Adult General Chief complaint: Abdominal Pain Stated complaint: UTI? Time Seen by Provider: 01/29/25 13:51 Source: patient and family (Daughter) Mode of arrival: ambulatory Limitations: no limitations History of Present Illness ED Provider: DR. Garcia HPI narrative: This is 79-year-old female with pertinent history of COPD not on home oxygen, former tobacco use disorder, mixed hyperlipidemia, mood disorder, gastroesophageal reflux disease brought in with her daughter for evaluation of recurrent UTIs patient was diagnosed with 6 episode of UTI in the last 4 months that required different antibiotics, diagnosed with UTI last week started on Cipro patient now is complaining of diarrhea, decreased p.o. intake, abdominal discomfort, no nausea, no vomiting, no fever, chills. Related Data Home Medications ?Medication ?Instructions ?Recorded ?Confirmed omeprazole 20 mg capsule,delayed 1 cap PO DAILY@0630 PRN Acid Reflux 08/19/20 01/31/24 release prednisone 5 mg tablet 1 tab PO DAILY 08/19/20 01/31/24 atorvastatin 20 mg tablet 20 mg PO DAILY 01/31/24 01/31/24 duloxetine 20 mg capsule,delayed 40 mg PO DAILY 01/31/24 01/31/24 release fluticasone fur. 100 mcg-umeclid 1 ea inhalation DAILY 01/31/24 01/31/24 62.5 mcg-vilant 25 mcg inhalat.powder (Trelegy Ellipta) quetiapine 25 mg tablet 12.5 mg PO BEDTIME 01/31/24 01/31/24 Previous Rx's ?Medication ?Instructions ?Recorded benzonatate 100 mg capsule 100 mg PO TID PRN Cough #20 caps 02/03/24 levalbuterol HCl 1.25 mg/3 mL 1.25 mg (3 mL) inhalation Q4H PRN 02/03/24 solution for nebulization Shortness Of Breath/Wheezing #72 mL prednisone 10 mg tablet See Taper PO DIRECTED #30 tabs 02/03/24 vancomycin 125 mg capsule 125 mg PO QID #40 caps 01/29/25 Allergies Allergy/AdvReac Type Severity Reaction Status Date / Time No Known Allergies Allergy Verified 01/29/25 11:27 Review of Systems Review of Systems: All other systems are reviewed and are negative Constitutional: Reports as per HPI and Reports no additional constitutional complaints Eyes: Reports as per HPI and Reports no additional eye complaints Reports system reviewed and no additional complaints, except as documented Cardiovascular: Reports as per HPI and Reports no additional cardiovascular complaints Respiratory: Reports as per HPI and Reports no additional respiratory complaints Gastrointestinal: Reports as per HPI and Reports no additional gastrointestinal complaints Genitourinary: Reports no additional female genitourinary complaints Musculoskeletal: Reports no additional musculoskeletal complaints Skin/Breast: Reports system reviewed and no additional complaints, except as docu Psychiatric: Reports no additional psychiatric complaints Endocrine: Reports no additional endocrine complaints Hematologic/Lymphatic: Reports no additional hematologic/lymphatic complaints Allergic/Immunologic: Reports no additional allergic/immunologic complaints Reports system reviewed and no additional complaints, except as documented and Reports Abnormal speech present [facility] Past Medical History Medical History High cholesterol Anxiety Diverticulosis IBS (irritable bowel syndrome) COPD (chronic obstructive pulmonary disease) Surgical History History of back surgery History of partial colectomy Social History Social History Household Members: None Patient Tobacco Use Status: Never used Tobacco Smoked in Last 30 Days: No Use of substances other than those prescribed or required for medical reasons: No Advance Directives: No Advance Directives Information Provided: Yes service: No Physical Exam ED Vital Signs: Vital Signs - 24 hr 01/29/25 11:26 01/29/25 14:00 01/29/25 14:02 Temperature 97.6 F Pulse Rate 98 77 73 Respiratory Rate 18 22 H Blood Pressure 102/61 102/57 L 109/59 L Pulse Oximetry 96 94 Oxygen Delivery Method Room Air Room Air 01/29/25 14:16 01/29/25 14:16 01/29/25 14:17 Temperature Pulse Rate 79 73 75 Respiratory Rate Blood Pressure 109/59 L 97/63 102/57 L Pulse Oximetry Oxygen Delivery Method BMI result Body Mass Index 18.3 Vital signs have been reviewed and appear to be correct. Blood pressure elevated. Heart rate normal. Respiratory rate normal. Temperature normal. Oxygen saturation normal. Appearance: Alert. Oriented X3. No acute distress. Head: Normal external exam. Normocephalic. Atraumatic. No Melara signs noted. No raccoon eyes noted Eyes: PERRLA. EOMI. Conjunctiva and sclera normal. Eyelids normal. ENT: TM's Normal. Pharynx normal. Uvula midline. Moist mucous membranes. No trismus noted. No drooling noted. No muffled voice noted. Neck: Normal inspection. Neck supple. FROM. No adenopathy. Thyroid Normal. No meningeal signs. No neck mass noted. CVS: Normal heart rate and rhythm. Heart sound normal. No murmurs noted. Pulses normal throughout. Respiratory: No respiratory distress. Painless inspiration. Breath sounds normal. No wheezes/rales/rhonchi noted. Chest nontender. No accessory muscle usage noted or decreased air movement noted. Abdomen: Soft and nontender. Bowel sounds normal in all 4 quadrants. No distention noted. No organomegaly noted. No visible injury noted. Back: No CVA tenderness. Full range of motion noted. Skin: Skin warm and dry. Normal skin color. Normal skin turgor. No rashes/lesions/lacerations noted. Extremities: No lower extremity edema. Extremities exhibit normal range of motion. Extremities nontender. Neuro: Oriented X 3. Cranial nerve exam: II-XII are grossly intact No motor deficit. No sensory deficit. Reflexes normal. Course Reevaluation(s) Reevaluation #1: 79-year-old female was placed on ciprofloxacin for UTI, now with nonbloody watery diarrhea several episodes, patient is non dehydrated, no orthostatic vital sign change, labs are unremarkable, urine analysis is showing no UTI, patient is unable to give stool sample to confirmed diagnosis of C diff because the severe diarrhea will start the patient on vancomycin orally. Will start on vancomycin 125 mg p.o. q.i.d. for 10 days. To stop Cipro, hydration, take 1 yogurt daily for probiotic. Time: 15:41 Medications Administered Discontinued Medications Generic Name Dose Route Start Last Admin Trade Name Freq PRN Reason Stop Dose Admin Lactated Ringer's 1,000 mls @ 999 mls/hr 01/29/25 14:00 01/29/25 14:09 Lr IV 01/29/25 15:00 999 mls/hr .Q1H1M JUD Administration Iohexol 100 ml 01/29/25 14:43 01/29/25 14:43 Iohexol 350 Mg/Ml 100 Ml Infus..Btl IV 01/29/25 14:44 85 ml ONCE ONE Administration Medical Decision Making Differential Diagnosis Differential Diagnoses: The differential diagnosis associated with the presentation includes (Dehydration, electrolyte derangement, severe anemia, UTI, diverticulitis, colitis, pancreatitis.) Admission/Observation Consideration of admission/observation: Escalation of care including admission/observation considered Lab Data MDM Lab Attestation statement: I reviewed the patient's lab results. 01/29/25 12:01 01/29/25 12:01 Labs: Lab Results 01/29/25 01/29/25 Range/Units 12:01 14:11 WBC 8.8 (4.8-10.8) X10*3/uL RBC 4.62 (4.20-5.50) X10*6/uL Hgb 13.6 (12.0-16.0) g/dl Hct 42.0 (37.0-47.0) % MCV 90.9 (80.0-98.0) fL MCH 29.4 (27.0-33.0) pg MCHC 32.4 (31.0-35.0) g/dl RDW 13.8 (11.0-16.0) % Plt Count 262 (160-400) X10*3/uL MPV 8.7 L (9.4-12.3) fL Immature Gran % (Auto) 0.5 H (0.0-0.4) % Neut % (Auto) 77.8 H (45-73) % Lymph % (Auto) 12.1 L (20-40) % Isabella % (Auto) 6.8 (2-11) % Eos % (Auto) 2.2 (0-4) % Baso % (Auto) 0.6 (0-2) % Lymph # (Auto) 1.1 L (1.2-4.9) X10*3/uL Isabella # (Auto) 0.6 (0.1-1.2) X10*3/uL Eos # (Auto) 0.2 (0.0-0.4) X10*3/uL Baso # (Auto) 0.1 (0.0-0.2) X10*3/uL Abs Immat Gran (auto) 0.04 H (0.00-0.03) X10*3/uL Absolute Neuts (auto) 6.9 (2.0-8.3) x10*3/uL Absolute Nucleated RBC 0.000 (0.0-0.012) X10*3/uL Nucleated RBC % (auto) 0.0 (0.0-0.2) /100WBC Sodium 139 (135-145) mmol/L Potassium 4.2 (3.3-5.1) mmol/L Chloride 105 (96-108) mmol/L Carbon Dioxide 27 (22-29) mmol/L Anion Gap 11 L (12-20) BUN 16 (9-16) mg/dL Creatinine 0.90 (0.5-1.4) mg/dL Estim Creat Clear Calc 38.5 Estimated GFR > 60 Random Glucose 101 (60-115) mg/dL Calcium 9.6 (8.4-10.2) mg/dL Total Bilirubin 0.5 (0.0-1.0) mg/dL AST 24 (5-31) U/L ALT 25 (0-31) U/L Alkaline Phosphatase 68 (39-117) U/L Total Protein 6.7 (6.5-8.0) g/dL Albumin 4.4 (3.5-5.0) g/dL Lipase 14 (8-78) U/L Urine Color Yellow Urine Appearance Clear Urine pH 6.5 (5.0-9.0) Ur Specific [place] 1.010 (1.005-1.025) Urine Protein Negative (Neg-Trace) mg/dL Urine Glucose (UA) Negative (Negative) mg/dL Urine Ketones Negative (Negative) mg/dL Urine Blood Negative (Negative) Urine Nitrite Negative (Negative) Ur Leukocyte Esterase Negative (Negative) Independent Interpretation I performed an independent interpretation of an: CT Scan (Abdomen and pelvis:Sigmoid diverticulosis without evidence of diverticulitis. No acute abnormality is identified. ) Radiology Impression Discussion of test interpretation with radiology: I have reviewed the radiologist's reading. Discharge Plan Discharge Clinical Impression: Anxiety, C. difficile diarrhea Patient Disposition: Home, Self-Care Instructions: C. Diff (Clostridioides Difficile) Infection (ED) Prescriptions: New vancomycin 125 mg capsule 125 mg PO QID Qty: 40 0RF No Action prednisone 5 mg tablet 1 tab PO DAILY omeprazole 20 mg capsule,delayed release(DR/EC) 1 cap PO DAILY@0630 PRN (Reason: Acid Reflux) quetiapine 25 mg tablet 12.5 mg PO BEDTIME atorvastatin 20 mg tablet 20 mg PO DAILY duloxetine 20 mg capsule,delayed release(DR/EC) 40 mg PO DAILY Trelegy Ellipta 100-62.5-25 mcg blister with device 1 ea inhalation DAILY levalbuterol HCl 1.25 mg/3 mL Solution For Nebulization 1.25 mg inhalation Q4H PRN (Reason: Shortness Of Breath/Wheezing) Qty: 72 0RF prednisone 10 mg tablet See Taper PO DIRECTED Qty: 30 0RF Taper: Prednisone 40 mg daily for 3 Days and 0 Hour 30 mg daily for 3 Days and 0 Hour 20 mg daily for 3 Days and 0 Hour 10 mg daily for 3 Days and 0 Hour Rx Instructions: see taper instructions benzonatate 100 mg Capsule 100 mg PO TID PRN (Reason: Cough) Qty: 20 0RF Referrals: Jermain Roberson MD [Primary Care Provider, Medical] Print Language: Lithuanian
[2025-01-29] MEDS: Lactated Ringers 1,000 ML 999 ML IV (14:09)
[2025-01-29 14:21] LABS: Appearance Urine Clear; Glucose Urine UA Negative (Negative); PH 6.5 (5.0-9.0); Specific Gravity - Urine 1.010 (1.005-1.025)
[2025-01-29] MEDS: iohexoL 350 MG/ML 100 ML INFUS..BTL IV (14:43)
--- NOTE | 2025-01-29 16:19 | PC.NURSE ---
Pt unable to provide stool sample. Per MD Jian meeks to d/c pt home without stool sample.
--- OUTSIDE RECORDS SUMMARY | 2025-01-29 18:29 | XMS_ITS | Patient Health Record ---
Author Organization 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 Chief Name Role Phone Karol CARTAGENA, Jermain Primary Care Provider Ag Guajardo Jr Unavailable Allergies No Known Allergies Reason For Referral No Information Medications Medication SIG (Take, Route, Frequency, Duration) Notes Start Date End Date Status Metamucil 28 % 1 packet with 8 ounc es of liquid as needed Orally Three times a day Active Dicyclomine HCl 10 MG TAKE 1 CAPSULE BY MOUTH 2-4 TIMES A DAY; Duration: 90 days Active Advil 200 MG 1 tablet with food o r milk as needed Orally twice times a day Active Omeprazole 20 MG 1 capsule 30 minutes before morning meal Orally Once a day; Duration: 90 Active DULoxetine HCl 20 MG 1 capsule Orally On ce a day Active Atorvastatin Calcium 10 MG TAKE 1 TABLET BY MOUTH EVERY DAY Oral; Duration: 90 Active predniSONE 5 MG TAKE 1 TABLET BY JELLY TH EVERY DAY Oral; Duration: 90 Active Albuterol Sulfate HFA 108 (90 Base) MCG/ACT 1 puff as needed Inhalation every 4 hrs Active Symbicort 160-4.5 MCG/ACT INHALE 2 PUFFS TWICE A DAY Inhalation; Duration: 90 Active Immunizations Vaccine Route Administration Date Status Comme nts Influenza Unknown 12/16/2019 Administered Influenza Unknown 01/14/2021 Administered Social History Tobacco Use: Social History Observation Description Date Details (start date - stop date) Former Smoker NA - NA Tobacco Use/Smoking Question Answer Notes Patient is a former smoker Alcohol Screen Question Answer Notes Did you have a drink containing alcohol in the p ast year? No Points 0 Interpretation Negative Problems Problem Type SNOMED Code ICD Code Onset Dates Problem Status W/U Status Risk Notes Problem Weight loss (249035579) Weight loss (R63.4) Active confirmed Problem Generalized abdominal pain (134797136) Generalized abdominal pain (R10.84) Active confirmed Problem Abdominal pain (80168602) Abdominal pain, unspecified abdominal location (R10.9) Active confirmed Problem Diarrhea (97718055) Diarrhea, unspecified type (R19.7) Active confirmed Problem Irritable bowel syndrome (27574227) Other irritable bowel syndrome (K58.8) Active confirmed Problem Gastroesophageal reflux disease (524362014) Gastroesophageal reflux disease, unspecified whether esophagitis present (K21.9) Active confirmed Problem Weight decreased (335598167) Decreased weight (R63.4) Active confirmed Plan Of Treatment Pending Test Test Name Order Date CHEM 7 PROFILE 08/17/2020 LIVER PROFILE 08/17/2020 AMYLASE 08/17/2020 LIPASE 08/17/2020 CRP 08/17/2020 CBC w DIFF 08/17/2020 SED RATE (ESR) 08/17/2020 CELIAC PANEL #10 08/17/2020 OVA & PARASITES (O&P) 08/17/2020 CULTURE, STOOL 08/17/2020 STOOL WBC 08/17/2020 C DIFFICILE RFLX PCR 08/17/2020 Insurance Providers Payer Name Payer Address Payer Phone Subscriber Number Group Number Insured Name Patient Relationship to Insured Coverage Start Date Coverage End Date MEDICARE OF [place] [address] [place] [address] [id number] JAYCE NEGRETE Self - patient is the insured [employer] ATT[employer] CLAIMS [address] [place] [address] [id number] JAYCE NEGRETE Self - patient is the insured Medical (General) History Medical History History ICD Code TIA COPD nephrolithiasis anxiety/depression/panic disorder back pain elevated cholesterol colonoscopy 07/08/18, diverti culosis and small transverse colon tubular adenoma,Dr. Stuart Surgical History Surgery Date(Month/Year) diskectomy 1983 right colon resection for tubular adenom a spontaneous pneumomorax 2016 partial hysterectomy
== END 2025-01-29 16:20 | disposition home or self-care (01) ==
PROVIDERS: Physician Assistant; Emergency Provider Emergency Medicine; PCP Internal Medicine
DX: A04.71 Enterocolitis due to Clostridium difficile, recurrent (principal); F41.9 Anxiety disorder, unspecified; R11.0 Nausea; R10.A3 Flank pain, bilateral; Z79.899 Other long term (current) drug therapy
CPT/HCPCS: 36415; 74177; 80053; 81003; 83690; 85025; 96360; 96361; 99285; J7120; Q9967

== ENCOUNTER → 2025-01-29 13:58 | Outpatient (BNV) | payer MEDICARE, SELFPAY | PROVIDERS: Emergency Provider Emergency Medicine; PCP Internal Medicine; Visit Provider Radiology Diagnostic Radiology | DX: K57.30 Diverticulosis of large intestine without perforation or abscess without bleeding (principal) | CPT/HCPCS: 74177 ==